=== PATIENT | male | born 1960 | race Caucasian/White ===

== ENCOUNTER → 2024-01-12 | Outpatient (CLI) | payer MEDICARE, MEDICAID, SELFPAY ==
[2024-01-12 19:49] LABS: Amphetamine Urine VISTA NEGATIVE (<1000 ng/mL); Barbiturate Urine VISTA NEGATIVE (< 200 ng/mL); Benzodiazepine Urine VISTA NEGATIVE (< 200 ng/mL); Cocaine Urine VISTA NEGATIVE (< 300 ng/mL); Ecstacy Urine VISTA NEGATIVE (< 500 ng/mL); Methadone Urine VISTA NEGATIVE (< 300 ng/mL); PCP Urine VISTA NEGATIVE (< 25 ng/mL); THC Urine VISTA POSITIVE (< 50 ng/mL); Vista UDS pH Range 4
--- OUTSIDE RECORDS SUMMARY | 2024-01-13 03:34 | XMS RPT_ITS | CCD ---
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 [id number] 2.16.840.1.938365.3.579.2. 356 1958 Unknown [id number] 2.16.840.1.184913.3.579.2. 356 1958 Unknown [id number] 2.16.840.1.686350.3.579.2. 356 1958 Unknown [id number] 2.16.840.1.206354.3.579.2. 356 1958 Unknown [id number] 2.16.840.1.487518.3.579.2. 1243 1958 Unknown [id number] 2.16.840.1.809974.3.579.2. 1243 1958 Unknown [id number] 2.16.840.1.061939.3.579.2. 1243 1958 Unknown [id number] 2.16.840.1.624425.3.579.2. 1245 1958 Unknown [id number] 2.16.840.1.991750.3.579.2. 1244 1958 Unknown [id number] 2.16.840.1.696171.3.579.2. 1244 1958 Unknown [id number] 2.16.840.1.594464.3.579.2. 1244 1958 Unknown [id number] 2.16.840.1.121829.3.579.2. 1244 1958 Unknown [id number] 2.16.840.1.489349.3.579.2. 1244 Social History Date Type Detail Facility Start: 11-05-2018 End: 01-07-2024 Tobacco smoking status NDIS Current every day smoker [facility] History of tobacco use Cigarette Smoker [facility] Work Phone: Start: 11-05-2018 End: 12-03-2023 Cigarettes smoked current (pack per day) - Reported [facility] Work Phone: Start: 1960 Sex Assigned At Not on file [facility] Work Phone: Start: 12-06-2019 End: 08-29-2022 Alcohol intake Current non-drinker of alcohol (finding) [facility] Start: 12-13-2019 End: 01-19-2022 Alcohol intake Current drinker of alcohol (finding) [facility] Start: 01-28-2020 Tobacco Comment 3-4 cigarettes [facility] Start: 08-26-2022 End: 09-05-2022 Exposure to SARS-CoV-2 (event) Unable to assess [facility] Start: 02-10-2020 End: 01-07-2024 Tobacco use and exposure Never used [facility] Start: 01-09-2022 End: 01-07-2024 Exposure to SARS-CoV-2 (event) Not sure [facility] Start: 06-11-2022 Tobacco Comment 3-4 cigarettes [facility] Start: 08-28-2022 History SDOH Financial 3 [facility] Start: 08-28-2022 History SDOH Food Worry 1 [facility] Start: 08-28-2022 History SDOH Transpo rt Med 2 [facility] Tobacco smoking consumption unknown [facility] Start: 02-02-2023 End: 12-03-2023 Tobacco use panel [facility] Work Phone: Start: 08-20-2023 End: 01-07-2024 Alcohol intake Ex-drinker (finding) [facility] Work Phone: History of tobacco use Passive smoker [facility] Work Phone: Clinical Notes 01-19-2022 to 01-07-2024 Assessment & Plan Note - Kyle Emery MD - 01/07/2024 12:57 PM ESTAssessment & Plan Note - Kyle Emery MD - 01/07/2024 12:57 PM ESTPatient InstructionsPatient Instructions Note Date & Type Note Facility 01-07-2024 Evaluation + Plan note Associated Problem(s): Chronic right-sided low back pain with right-sided sciatica Patient has been there for several months, x-ray in August showed degenerative changes, patient is complaining about pain especially into his right leg, refer to pain management for possible injections, may also want to consider physical therapy. [facility] Work Phone: 01-07-2024 Miscellaneous Notes Associated Problem(s): Chronic right-sided low back pain with right-sided sciatica Patient has been there for several months, x-ray in August showed degenerative changes, patient is complaining about pain especially into his right leg, refer to pain management for possible injections, may also want to consider physical therapy. Associated Problem(s): Current mild episode of major depressive disorder without prior episode (CMS/HCC) Currently on medication, emotionally seems to be stable. Associated Problem(s): Prediabetes A1c testing below 6, advised about diet no change. Associated Problem(s): Thrombocytopenia (CMS/HCC) Platelet count is elevated, advised about nicotine use. Recheck at follow-up. Associated Problem(s): Dyslipidemia Tolerating atorvastatin labs reviewed. Associated Problem(s): Palpitations EKG in the office is normal, recent thyroid testing in the past 6 months was also normal, recent blood testing was reviewed and stable. Check 7-day Holter monitor along with a echocardiogram and follow-up after testing. Associated Problem(s): Primary hypertension Blood pressure is elevated, add diltiazem 240 mg once a day given history of palpitations, continue with current dosing of lisinopril, electrolyte and renal functions are stable had trouble tolerating beta-blockers in the past. documented in this encounter [facility] Work Phone: 01-07-2024 Evaluation + Plan note Associated Problem(s): Current mild episode of major depressive disorder without prior episode (CMS/HCC) Currently on medication, emotionally seems to be stable. [employer] [facility] Work Phone: 01-07-2024 Evaluation + Plan note Associated Problem(s): Prediabetes A1c testing below 6, advised about diet no change. [employer] [facility] Work Phone: 01-07-2024 Evaluation + Plan note Associated Problem(s): Thrombocytopenia (CMS/HCC) Platelet count is elevated, advised about nicotine use. Recheck at follow-up. [employer] [facility] Work Phone: 01-07-2024 Evaluation + Plan note Associated Problem(s): Dyslipidemia Tolerating atorvastatin labs reviewed. [employer] [facility] Work Phone: 01-07-2024 Evaluation + Plan note Associated Problem(s): Palpitations EKG in the office is normal, recent thyroid testing in the past 6 months was also normal, recent blood testing was reviewed and stable. Check 7-day Holter monitor along with a echocardiogram and follow-up after testing. [facility] Work Phone: 01-07-2024 Evaluation + Plan note Associated Problem(s): Primary hypertension Blood pressure is elevated, add diltiazem 240 mg once a day given history of palpitations, continue with current dosing of lisinopril, electrolyte and renal functions are stable had trouble tolerating beta-blockers in the past. [facility] Work Phone: 01-07-2024 History of Presen t illness Narrative Subjective Reason for Visit: Bg Arreola is an 63 y.o. male here for a Medicare Wellness visit. Past Medical, Surgical, and Family History reviewed and updated in chart. Reviewed all medications by prescribing practitioner or clinical pharmacist (such as prescriptions, OTCs, herbal therapies and supplements) and documented in the medical record. HPI No headache, chest pain, shortness of breath, dizziness, lightheadedness, or edema HBP over 140/90 LBP chronic pain since August, feels like pain getting worse, radiates to right leg to mid calf, some weakness at times Tobacco 3-4 cigarettes a day Seen Opthomology, diagnosed with vitreous detachment Had an episode of palpitations yesterday, valsalva helped, no near syncope, lasted minutes Patient Care Team: Kyle Emery MD as PCP - General (Family Medicine) Ja Borges DO as PCP - [facility] Medicaid PCP Review of Systems Constitutional: Negative for activity change, appetite change, fatigue and unexpected weight change. HENT: Negative for ear pain, nosebleeds, rhinorrhea, sneezing and trouble swallowing. Respiratory: Negative for cough, shortness of breath and wheezing. Cardiovascular: Positive for palpitations. Negative for chest pain and leg swelling. Gastrointestinal: Negative for abdominal distention, abdominal pain, constipation, diarrhea, nausea and vomiting. Genitourinary: Negative for difficulty urinating. Musculoskeletal: Positive for back pain. Negative for arthralgias. Skin: Negative for rash. Neurological: Negative for dizziness, light-headedness, numbness and headaches. Hematological: Negative for adenopathy. Psychiatric/Behavioral: Negative for behavioral problems, dysphoric mood and sleep disturbance. The patient is not nervous/anxious. All other systems reviewed and are negative. Objective Vitals: BP (!) 160/100 Pulse 83 SpO2 97% Physical Exam Vitals and nursing note reviewed. Constitutional: General: He is not in acute distress. Appearance: Normal appearance. He is not toxic-appearing. HENT: Head: Normocephalic and atraumatic. Right Ear: Tympanic membrane, ear canal and external ear normal. Left Ear: Tympanic membrane, ear canal and external ear normal. Nose: Nose normal. Mouth/Throat: Mouth: Mucous membranes are moist. Pharynx: Oropharynx is clear. Eyes: Extraocular Movements: Extraocular movements intact. Conjunctiva/sclera: Conjunctivae normal. Pupils: Pupils are equal, round, and reactive to light. Cardiovascular: Rate and Rhythm: Normal rate and regular rhythm. Pulses: Normal pulses. Heart sounds: Normal heart sounds. Comments: EKG in the office reveals a normal sinus rhythm without any ST-T wave changes or any arrhythmias. Pulmonary: Effort: Pulmonary effort is normal. Breath sounds: Normal breath sounds. Abdominal: General: Abdomen is flat. Bowel sounds are normal. Palpations: Abdomen is soft. Musculoskeletal: Cervical back: Normal range of motion and neck supple. Comments: Some pain along the lower back at the area of the waist level of L4-S1, negative straight leg raise normal lower extremity strength and reflexes. Normal distal sensation. Skin: General: Skin is warm and dry. Capillary Refill: Capillary refill takes less than 2 seconds. Neurological: General: No focal deficit present. Mental Status: He is alert and oriented to person, place, and time. Mental status is at baseline. Psychiatric: Mood and Affect: Mood normal. Behavior: Behavior normal. Assessment/Plan Problem List Items Addressed This Visit Primary hypertension Current Assessment & Plan Blood pressure is elevated, add diltiazem 240 mg once a day given history of palpitations, continue with current dosing of lisinopril, electrolyte and renal functions are stable had trouble tolerating beta-blockers in the past. Relevant Medications dilTIAZem CD (Cardizem CD) 240 mg 24 hr capsule Other Relevant Orders Follow Up In Primary Care - Established Transthoracic Echo Complete Palpitations Current Assessment & Plan EKG in the office is normal, recent thyroid testing in the past 6 months was also normal, recent blood testing was reviewed and stable. Check 7-day Holter monitor along with a echocardiogram and follow-up after testing. Relevant Orders Follow Up In Primary Care - Established Holter Or Event Psych Nurse ECG 12 Lead (Completed) Transthoracic Echo Complete Dyslipidemia Current Assessment & Plan Tolerating atorvastatin labs reviewed. Relevant Orders Follow Up In Primary Care - Established Anxiety Relevant Orders Follow Up In Primary Care - Established Current mild episode of major depressive disorder without prior episode ([facility]) Current Assessment & Plan Currently on medication, emotionally seems to be stable. Relevant Orders Follow Up In Primary Care - Established Prediabetes Overview HbA1c: 5.8% (12/2022) Current Assessment & Plan A1c testing below 6, advised about diet no change. Relevant Orders Follow Up In Primary Care - Established Thrombocytopenia ([facility]) Current Assessment & Plan Platelet count is elevated, advised about nicotine use. Recheck at follow-up. Relevant Orders Follow Up In Primary Care - Established Chronic right-sided low back pain with right-sided sciatica Current Assessment & Plan Patient has been there for several months, x-ray in August showed degenerative changes, patient is complaining about pain especially into his right leg, refer to pain management for possible injections, may also want to consider physical therapy. Relevant Orders Follow Up In Primary Care - Established Referral to Pain Medicine Other Visit Diagnoses Routine general medical examination at health care facility - Primary Patient refused pneumonia vaccination despite crisis counselor. Relevant Orders Follow Up In Primary Care - Established Screening for prostate cancer Check PSA first. Relevant Orders Follow Up In Primary Care - Established Encounter for screening for malignant neoplasm of colon Will send Cologuard. Relevant Orders Follow Up In Primary Care - Established Vision changes Acute vision changes over the past 2 weeks, refer to ophthalmology Relevant Orders Follow Up In Primary Care - Established documented in this encounter [facility] Work Phone: 01-07-2024 Instructions Kyle Emery MD - 01/07/2024 8:40 AM EST Start diltiazem once a day and get heart testing done documented in this encounter [facility] Work Phone: 12-03-2023 Evaluation + Plan note Associated Problem(s): Chronic right-sided low back pain with right-sided sciatica Using meloxicam, would defer pain medication due to THC use, trial prednisone taper over the next 10 days. [facility] Work Phone: 12-03-2023 Evaluation + Plan note Associated Problem(s): Current mild episode of major depressive disorder without prior episode (CMS/HCC) Seems to be stable uses cannabis on a regular basis. [facility] Work Phone: 12-03-2023 Evaluation + Plan note Associated Problem(s): Anxiety Not currently on medication, uses cannabis recreationally that seems to help control moods. [facility] Work Phone: 12-03-2023 Miscellaneous Notes Associated Problem(s): Chronic right-sided low back pain with right-sided sciatica Using meloxicam, would defer pain medication due to THC use, trial prednisone taper over the next 10 days. Associated Problem(s): Current mild episode of major depressive disorder without prior episode (CMS/HCC) Seems to be stable uses cannabis on a regular basis. Associated Problem(s): Anxiety Not currently on medication, uses cannabis recreationally that seems to help control moods. Associated Problem(s): Prediabetes Check A1c advised about diet. Associated Problem(s): Thrombocytopenia (CMS/HCC) Check CBC advised about tobacco use. Associated Problem(s): Dyslipidemia Tolerating atorvastatin, check blood testing. Associated Problem(s): Palpitations Holter monitor in the past demonstrated nonsignificant number of PVCs and PACs. Had trouble tolerating beta-blockers in the past, no change. Associated Problem(s): Primary hypertension Blood pressure elevated today, tolerating lisinopril, advised to try to get some home blood pressure readings before next office visit, check blood testing. documented in this encounter [facility] Work Phone: 12-03-2023 Evaluation + Plan note Associated Problem(s): Prediabetes Check A1c advised about diet. [facility] Work Phone: 12-03-2023 Evaluation + Plan note Associated Problem(s): Thrombocytopenia (CMS/HCC) Check CBC advised about tobacco use. [facility] Work Phone: 12-03-2023 Evaluation + Plan note Associated Problem(s): Dyslipidemia Tolerating atorvastatin, check blood testing. [facility] Work Phone: 12-03-2023 Evaluation + Plan note Associated Problem(s): Palpitations Holter monitor in the past demonstrated nonsignificant number of PVCs and PACs. Had trouble tolerating beta-blockers in the past, no change. [facility] Work Phone: 12-03-2023 Evaluation + Plan note Associated Problem(s): Primary hypertension Blood pressure elevated today, tolerating lisinopril, advised to try to get some home blood pressure readings before next office visit, check blood testing. [facility] Work Phone: 12-03-2023 History of Presen t illness Narrative Subjective Patient ID: Bg Arreola is a 63 y.o. male who presents for [employer],Estab Care. HPI No headache, chest pain, shortness of breath, dizziness, lightheadedness (at times), or edema Taking and tolerating statin Twisted back in the past week, was in ER in October, radiates to right leg, some weakness in right leg, Prednisone helped in the past Has some palpitations at times, had Holter in the next year Some urine issues in AM, no nocturia, Saw [place] helps Some visual changes in the past 2 weeks No Fhx of colon cancer or blood in stool No HBP, + tobacco use, has used Chantix in the past (had nightmares), 3-4 cigarettes a day, trying to quit Uses THC daily (helps sleep and moods) Defers pneumovax Review of Systems Constitutional: Negative for activity change, appetite change, fatigue and unexpected weight change. HENT: Negative for ear pain, nosebleeds, rhinorrhea, sneezing and trouble swallowing. Eyes: Positive for visual disturbance. Respiratory: Negative for cough, shortness of breath and wheezing. Cardiovascular: Negative for chest pain, palpitations and leg swelling. Gastrointestinal: Negative for abdominal distention, abdominal pain, constipation, diarrhea, nausea and vomiting. Genitourinary: Negative for difficulty urinating. Musculoskeletal: Positive for back pain. Negative for arthralgias and gait problem. Skin: Negative for rash. Neurological: Negative for dizziness, light-headedness, numbness and headaches. Hematological: Negative for adenopathy. Psychiatric/Behavioral: Negative for behavioral problems, decreased concentration, dysphoric mood, hallucinations and sleep disturbance. The patient is not nervous/anxious. All other systems reviewed and are negative. Objective BP (!) 140/100 Pulse 90 Ht 1.753 m (5' 9 ) Wt 95.9 kg (211 lb 8 oz) SpO2 95% BMI 31.23 kg/m Physical Exam Vitals and nursing note reviewed. Constitutional: General: He is not in acute distress. Appearance: Normal appearance. He is not toxic-appearing. HENT: Head: Normocephalic and atraumatic. Right Ear: Tympanic membrane, ear canal and external ear normal. Left Ear: Tympanic membrane, ear canal and external ear normal. Nose: Nose normal. Mouth/Throat: Mouth: Mucous membranes are moist. Pharynx: Oropharynx is clear. Eyes: Extraocular Movements: Extraocular movements intact. Conjunctiva/sclera: Conjunctivae normal. Pupils: Pupils are equal, round, and reactive to light. Cardiovascular: Rate and Rhythm: Normal rate and regular rhythm. Pulses: Normal pulses. Heart sounds: Normal heart sounds. Pulmonary: Effort: Pulmonary effort is normal. Breath sounds: Normal breath sounds. Abdominal: General: Abdomen is flat. Bowel sounds are normal. Palpations: Abdomen is soft. Musculoskeletal: Cervical back: Normal range of motion and neck supple. Comments: Some pain right SI area, negative straight leg raise bilaterally, normal strength, reflexes and distal pulses. Skin: General: Skin is warm and dry. Capillary Refill: Capillary refill takes less than 2 seconds. Neurological: General: No focal deficit present. Mental Status: He is alert and oriented to person, place, and time. Mental status is at baseline. Psychiatric: Mood and Affect: Mood normal. Behavior: Behavior normal. Assessment/Plan Problem List Items Addressed This Visit ICD-10-CM Primary hypertension - Primary I10 Blood pressure elevated today, tolerating lisinopril, advised to try to get some home blood pressure readings before next office visit, check blood testing. Relevant Orders Follow Up In Primary Care - Established Comprehensive Metabolic Panel Palpitations R00.2 Holter monitor in the past demonstrated nonsignificant number of PVCs and PACs. Had trouble tolerating beta-blockers in the past, no change. Dyslipidemia E78.5 Tolerating atorvastatin, check blood testing. Relevant Orders Follow Up In Primary Care - Established Comprehensive Metabolic Panel Lipid Panel Anxiety F41.9 Not currently on medication, uses cannabis recreationally that seems to help control moods. Relevant Orders Follow Up In Primary Care - Established Current mild episode of major depressive disorder without prior episode ([facility]) F32.0 Seems to be stable uses cannabis on a regular basis. Relevant Orders Follow Up In Primary Care - Established Prediabetes R73.03 Check A1c advised about diet. Relevant Orders Follow Up In Primary Care - Established Comprehensive Metabolic Panel Hemoglobin A1C (Completed) Thrombocytopenia (CMS/HCC) D69.6 Check CBC advised about tobacco use. Relevant Orders Follow Up In Primary Care - Established CBC and Auto Differential Chronic right-sided low back pain with right-sided sciatica M54.41, G89.29 Using meloxicam, would defer pain medication due to THC use, trial prednisone taper over the next 10 days. Relevant Medications predniSONE (Deltasone) 10 mg tablet Other Relevant Orders Follow Up In Primary Care - Established Other Visit Diagnoses Codes Screening for prostate cancer Z12.5 Check PSA first. Relevant Orders Follow Up In Primary Care - Established Prostate Specific Antigen, Screen (Completed) Encounter for screening for malignant neoplasm of colon Z12.11 Will send Cologuard. Relevant Orders Follow Up In Primary Care - Established Cologuard colon cancer screening Vision changes H53.9 Acute vision changes over the past 2 weeks, refer to ophthalmology Relevant Orders Follow Up In Primary Care - Established Referral to Ophthalmology documented in this encounter [facility] Work Phone: 12-03-2023 Instructions Kyle Emery MD - 12/03/2023 9:20 AM EST Try to get some blood pressures at home, goal to be loess than 140/90 documented in this encounter [facility] Work Phone: 10-16-2023 Emergency department Note Patient is a 63-year-old male chief complaint of green diarrhea. States he has had some diarrhea for months now. About 3 days ago he ate some ham that had been out all night. Initially his diarrhea turned bloody and now it is green. He has no dizziness or lightheadedness. No nausea or vomiting. Review of Systems Physical Exam Vitals and nursing note reviewed. Constitutional: General: He is not in acute distress. Appearance: He is well-developed. HENT: Head: Normocephalic and atraumatic. Eyes: Conjunctiva/sclera: Conjunctivae normal. Cardiovascular: Rate and Rhythm: Normal rate and regular rhythm. Heart sounds: No murmur heard. Pulmonary: Effort: Pulmonary effort is normal. No respiratory distress. Breath sounds: Normal breath sounds. Abdominal: Palpations: Abdomen is soft. Tenderness: There is no abdominal tenderness. Musculoskeletal: General: No swelling. Cervical back: Neck supple. Skin: General: Skin is warm and dry. Capillary Refill: Capillary refill takes less than 2 seconds. Neurological: Mental Status: He is alert. Psychiatric: Mood and Affect: Mood normal. Labs Reviewed - No data to display No orders to display Procedures Medical Decision Making Patient presents with a change in his diarrhea after eating what he describes as some spoiled ham. He has mild abdominal discomfort and some greenish diarrhea. Will give him an initial dose of Cipro and a prescription for 3 more days. Diagnoses as of 10/16/23628 Diarrhea of presumed infectious origin Farzana Cornell MD 10/16/23628 documented in this encounter [facility] Work Phone: 10-16-2023 Physician Emergency department Note Patient is a 63-year-old male chief complaint of green diarrhea. States he has had some diarrhea for months now. About 3 days ago he ate some ham that had been out all night. Initially his diarrhea turned bloody and now it is green. He has no dizziness or lightheadedness. No nausea or vomiting. Review of Systems Physical Exam Vitals and nursing note reviewed. Constitutional: General: He is not in acute distress. Appearance: He is well-developed. HENT: Head: Normocephalic and atraumatic. Eyes: Conjunctiva/sclera: Conjunctivae normal. Cardiovascular: Rate and Rhythm: Normal rate and regular rhythm. Heart sounds: No murmur heard. Pulmonary: Effort: Pulmonary effort is normal. No respiratory distress. Breath sounds: Normal breath sounds. Abdominal: Palpations: Abdomen is soft. Tenderness: There is no abdominal tenderness. Musculoskeletal: General: No swelling. Cervical back: Neck supple. Skin: General: Skin is warm and dry. Capillary Refill: Capillary refill takes less than 2 seconds. Neurological: Mental Status: He is alert. Psychiatric: Mood and Affect: Mood normal. Labs Reviewed - No data to display No orders to display Procedures Medical Decision Making Patient presents with a change in his diarrhea after eating what he describes as some spoiled ham. He has mild abdominal discomfort and some greenish diarrhea. Will give him an initial dose of Cipro and a prescription for 3 more days. Diagnoses as of 10/16/23628 Diarrhea of presumed infectious origin Farzana Cornell MD 10/16/23628 [facility] Work Phone: 10-10-2023 Evaluation + Plan note Associated Problem(s): Chronic right-sided low back pain with right-sided sciatica ED saad reviewed - picked up Flexeril, prednisone, [place] from pharmacy that he has not yet started. Medication dosing and side effects reviewed. Agree with pain management establishment - will facilitate referral. He prefers [facility]. Return precautions reviewed. [facility] Work Phone: 10-10-2023 Miscellaneous Notes Associated Problem(s): Chronic right-sided low back pain with right-sided sciatica ED eval reviewed - picked up Flexeril, prednisone, [place] from pharmacy that he has not yet started. Medication dosing and side effects reviewed. Agree with pain management establishment - will facilitate referral. He prefers [facility]. Return precautions reviewed. documented in this encounter [facility] Work Phone: 10-08-2023 History of Presen t illness Narrative Subjective Patient ID: Bg Arreola is a 63 y.o. male who presents for ER follow up for back pain HPI Back pain - struggles with chronic back pain that has been worsening over the past few weeks, pain localized to low back and intermittently radiates down posterior RLE to the foot, denies numbness, tingling, LE weakness, saddle anesthesia, urinary retention, bowel/bladder incontinence, was evaluated in [facility] ED this morning, tx with IM toradol and steroid and has not had any improvement in symptoms yet, was provided with rx for prednisone, [place], Flexeril, picked up from pharmacy but has not yet started them, he is interested in establishing with pain management Review of Systems Constitutional: Negative for chills and fever. Respiratory: Negative for cough and shortness of breath. Cardiovascular: Negative for chest pain and palpitations. Musculoskeletal: Positive for back pain. All other systems reviewed and are negative. Objective BP 118/76 Pulse 92 Ht 1.829 m (6') Wt 92.4 kg (203 lb 9.6 oz) BMI 27.61 kg/m Physical Exam Constitutional: Appearance: Normal appearance. HENT: Head: Normocephalic and atraumatic. Cardiovascular: Rate and Rhythm: Normal rate. Pulmonary: Effort: Pulmonary effort is normal. No respiratory distress. Neurological: Mental Status: He is alert. Psychiatric: Mood and Affect: Mood normal. Behavior: Behavior normal. Assessment/Plan Problem List Items Addressed This Visit ICD-10-CM Chronic right-sided low back pain with right-sided sciatica - Primary M54.41, G89.29 ED eval reviewed - picked up Flexeril, prednisone, [place] from pharmacy that he has not yet started. Medication dosing and side effects reviewed. Agree with pain management establishment - will facilitate referral. He prefers [facility]. Return precautions reviewed. Relevant Orders Referral to Pain Medicine Follow Up In Primary Care - Medicare Annual I dont do pain medicine documented in this encounter [facility] Work Phone: 04-02-2023 Evaluation + Plan note Associated Problem(s): Right hip pain Chronic. Reviewed tx options. Will trial NSAID and prn at bedtime muscle relaxer. Medication dosing and side effects reviewed. [facility] Work Phone: 04-02-2023 Miscellaneous Notes Associated Problem(s): Right hip pain Chronic. Reviewed tx options. Will trial NSAID and prn at bedtime muscle relaxer. Medication dosing and side effects reviewed. Associated Problem(s): Thrombocytopenia (CMS/HCC) Will repeat cbc and follow up with results. Associated Problem(s): Nocturia Urology eval. Associated Problem(s): Urinary hesitancy 1yr of hesitancy, urgency, nocturia. Will obtain PSA and will proceed with urology eval. Associated Problem(s): Primary hypertension BP at goal. Continue lisinopril at current dose. Associated Problem(s): Dyslipidemia Continue statin. documented in this encounter [facility] Work Phone: 04-02-2023 Evaluation + Plan note Associated Problem(s): Thrombocytopenia (CMS/HCC) Will repeat cbc and follow up with results. [facility] Work Phone: 04-02-2023 Evaluation + Plan note Associated Problem(s): Nocturia Urology eval. [facility] Work Phone: 04-02-2023 Evaluation + Plan note Associated Problem(s): Urinary hesitancy 1yr of hesitancy, urgency, nocturia. Will obtain PSA and will proceed with urology eval. [facility] Work Phone: 04-02-2023 Evaluation + Plan note Associated Problem(s): Primary hypertension BP at goal. Continue lisinopril at current dose. [facility] Work Phone: 04-02-2023 Evaluation + Plan note Associated Problem(s): Dyslipidemia Continue statin. [facility] Work Phone: 03-31-2023 History of Presen t illness Narrative Subjective Patient ID: Bg Arreola is a 62 y.o. male who presents for check up. HPI Regarding HTN, doing well with lisinopril. Denies adverse effects and overall feeling well. Denies CP, SOB, BANERJEE, LH, abd pain, n/v/d. Regarding palpitations, Holter reviewed and unrevealing. Patient states that symptoms have largely resolved. Regarding HLD, doing well with Lipitor. Denies adverse effects. Regarding urination, states that he has had difficulty starting stream in the mornings for the past 1yr. States has to sit and wait a while and then has to return to the bathroom a few more times before feeling empty. Also notes nocturia, up to 4x per night. Occasionally has sudden urge to urination. Denies pain or burning. Does admit to drinking at least 3 cans of Pepsi per day. PSA was 08/2022. Regarding hip pain, states that he has struggled with bilateral R>L hip pain since he was injured a few times in high school playing sports. Manages at this time with otc analgesics which sometimes help. Pain seems to be random but worse with flexion at the hip. Pain is starting to interfere with sleep. Review of Systems Constitutional: Negative for chills and fever. Respiratory: Negative for cough and shortness of breath. Cardiovascular: Negative for chest pain and palpitations. Genitourinary: Positive for difficulty urinating and urgency. Musculoskeletal: Positive for arthralgias (hip pain). All other systems reviewed and are negative. Objective BP 118/66 Pulse 88 Ht 1.829 m (6') Wt 94.3 kg (208 lb) BMI 28.21 kg/m Physical Exam Constitutional: Appearance: Normal appearance. HENT: Head: Normocephalic and atraumatic. Cardiovascular: Rate and Rhythm: Normal rate. Pulmonary: Effort: Pulmonary effort is normal. No respiratory distress. Neurological: Mental Status: He is alert. Psychiatric: Mood and Affect: Mood normal. Behavior: Behavior normal. Assessment/Plan Problem List Items Addressed This Visit Urinary hesitancy - Primary 1yr of hesitancy, urgency, nocturia. Will obtain PSA and will proceed with urology eval. Relevant Orders Referral to Urology Follow Up In Primary Care Thrombocytopenia (CMS/HCC) Will repeat cbc and follow up with results. Relevant Orders CBC and Auto Differential Follow Up In Primary Care Right hip pain Chronic. Reviewed tx options. Will trial NSAID and prn at bedtime muscle relaxer. Medication dosing and side effects reviewed. Relevant Medications meloxicam (Mobic) 7.5 mg tablet cyclobenzaprine (Flexeril) 5 mg tablet Other Relevant Orders Follow Up In Primary Care Primary hypertension BP at goal. Continue lisinopril at current dose. Relevant Orders CBC and Auto Differential Comprehensive Metabolic Panel Follow Up In Primary Care Nocturia Urology eval. Relevant Orders Referral to Urology Follow Up In Primary Care Dyslipidemia Continue statin. Relevant Orders Lipid Panel Follow Up In Primary Care Other Visit Diagnoses Prostate cancer screening Relevant Orders Prostate Specific Antigen Follow Up In Primary Care Follow up in 3mo for recheck, sooner if needed. documented in this encounter [facility] Work Phone: 02-08-2023 Evaluation + Plan note Associated Problem(s): Prediabetes Reviewed lifestyle modifications. Will continue to monitor. [facility] Work Phone: 02-08-2023 Miscellaneous Notes Associated Problem(s): Prediabetes Reviewed lifestyle modifications. Will continue to monitor. Associated Problem(s): Cigarette nicotine dependence without complication Pt ready to quit. Reviewed options. He is interested in Chantix as he did well with this in the past. Medication dosing and side effects reviewed. Associated Problem(s): Palpitations Largely unchanged compared to last eval. Will proceed with Holter and fu with results. Follow up in 2wks for recheck, sooner if needed. Return precautions reviewed. Associated Problem(s): Seasonal allergies Well-controlled with Flonase. Will provide refill. Associated Problem(s): Primary hypertension Improved since he restarted leftover lisinopril 20mg that he had at home. Will provide refill. Medication dosing and side effects reviewed. Recent metabolic panel reviewed. Associated Problem(s): Dyslipidemia Reviewed statin recommendation. Pt is agreeable. Will trial Lipitor. Medication dosing and side effects reviewed. documented in this encounter [facility] Work Phone: 02-08-2023 Evaluation + Plan note Associated Problem(s): Cigarette nicotine dependence without complication Pt ready to quit. Reviewed options. He is interested in Chantix as he did well with this in the past. Medication dosing and side effects reviewed. [facility] Work Phone: 02-08-2023 Evaluation + Plan note Associated Problem(s): Palpitations Largely unchanged compared to last eval. Will proceed with Holter and fu with results. Follow up in 2wks for recheck, sooner if needed. Return precautions reviewed. [facility] Work Phone: 02-08-2023 Evaluation + Plan note Associated Problem(s): Seasonal allergies Well-controlled with Flonase. Will provide refill. [facility] Work Phone: 02-08-2023 Evaluation + Plan note Associated Problem(s): Primary hypertension Improved since he restarted leftover lisinopril 20mg that he had at home. Will provide refill. Medication dosing and side effects reviewed. Recent metabolic panel reviewed. [facility] Work Phone: 02-08-2023 Evaluation + Plan note Associated Problem(s): Dyslipidemia Reviewed statin recommendation. Pt is agreeable. Will trial Lipitor. Medication dosing and side effects reviewed. [facility] Work Phone: 02-02-2023 History of Presen t illness Narrative Follow up to urgent care. Having papitations and high blood pressure. Has taken Lisinopril the last 4 days. Subjective Patient ID: Bg Arreola is a 62 y.o. male who presents for Follow-up and Hypertension. HPI Regarding palpitations, went to Urgent Care 01/29/2023 for eval and was told that BP was elevated. Was also having some SOB with palpitations. Labs were done during visit - significant for mild leukopenia and thrombocytopenia and HbA1c 5.8%. Otherwise unrevealing. States that he had leftover lisinopril at home and has been taking for the past 5 days. Did have 1 episode of random brief sharp CP since his eval, but overall feeling improved. Having palpitations at least daily. Regarding seasonal allergies, states that Flonase seems to help. Regarding insomnia, states that trazodone didn't help. Continues to struggle with falling and staying asleep. Review of Systems Constitutional: Negative for chills and fever. Respiratory: Negative for cough and shortness of breath. Cardiovascular: Positive for palpitations. Negative for chest pain. All other systems reviewed and are negative. Objective BP 138/76 Pulse 104 Ht 1.854 m (6' 1 ) Wt 91.9 kg (202 lb 9.6 oz) BMI 26.73 kg/m Physical Exam Constitutional: Appearance: Normal appearance. HENT: Head: Normocephalic and atraumatic. Eyes: General: No scleral icterus. Conjunctiva/sclera: Conjunctivae normal. Cardiovascular: Rate and Rhythm: Normal rate and regular rhythm. Heart sounds: No murmur heard. Pulmonary: Effort: Pulmonary effort is normal. No respiratory distress. Breath sounds: Normal breath sounds. Musculoskeletal: General: No swelling. Normal range of motion. Cervical back: Normal range of motion and neck supple. Skin: General: Skin is warm and dry. Findings: No rash. Neurological: General: No focal deficit present. Mental Status: He is alert. Psychiatric: Mood and Affect: Mood normal. Behavior: Behavior normal. Assessment/Plan Problem List Items Addressed This Visit Cigarette nicotine dependence without complication Pt ready to quit. Reviewed options. He is interested in Chantix as he did well with this in the past. Medication dosing and side effects reviewed. Relevant Medications varenicline (Chantix Starting Month Box) 0.5 mg (11)- 1 mg (42) tablet Dyslipidemia Reviewed statin recommendation. Pt is agreeable. Will trial Lipitor. Medication dosing and side effects reviewed. Relevant Medications atorvastatin (Lipitor) 10 mg tablet Palpitations Largely unchanged compared to last eval. Will proceed with Holter and fu with results. Follow up in 2wks for recheck, sooner if needed. Return precautions reviewed. Relevant Orders Holter or Event Psych Nurse Prediabetes Reviewed lifestyle modifications. Will continue to monitor. Primary hypertension - Primary Improved since he restarted leftover lisinopril 20mg that he had at home. Will provide refill. Medication dosing and side effects reviewed. Recent metabolic panel reviewed. Relevant Medications lisinopril 20 mg tablet Seasonal allergies Well-controlled with Flonase. Will provide refill. Relevant Medications fluticasone (Flonase) 50 mcg/actuation nasal spray documented in this encounter [facility] Work Phone: 09-24-2022 History of Presen t illness Narrative Patient is a 62-year-old very pleasant gentleman who presents to the office today to Establish with Urinary Hesitancy. He states that his symptom started several months ago. LUTs are chronic and mild. Some frequency and urgency...Some hesitancy... Denies dysuria and hematuria.. Nocturia x1..No Bone Pain...No Recent Weight Gain or Loss...No Fm Hx of Prostate CA... No recent PSA...Caffeine does worsen LUTs.. No medications for LUTs..ED is Chronic, no meds for this. No Hx of Kidney Stones. No Hx of UTI's. The patient states that he is currently on antihypertensive medications and is concerned with blood pressure elevations if he will be started on tamsulosin. [id number] Work Phone: 08-28-2022 Evaluation + Plan note Associated Problem(s): Hypertension No meds for blood pressure Write down readings [facility] 08-28-2022 Miscellaneous Notes Associated Problem(s): Hypertension No meds for blood pressure Write down readings Associated Problem(s): Anxiety Start taking lexapro to help with anxiety Anxiety Anxiety is a normal reaction to stress. Difficult situations can cause you to have symptoms such as sweaty palms and a nervous feeling. In an anxiety disorder, the symptoms are far more severe. Constant worry, muscle tension, trouble sleeping, nausea and diarrhea, and other symptoms can make normal daily activities difficult or impossible. These symptoms may occur for no reason, and they can affect your work, school, or social life. Medicines, counseling, and self-care can all help. Tips to help with anxiety Exercise Everyone knows that exercising helps you attain and maintain good physical health, but did you know that a consistent exercise routine can also help with anxiety1? In particular, aerobic exercise (e.g., running, swimming, walking2) can decrease both state (i.e., how you feel now) and trait (i.e., how you feel on a regular basis) anxiety3. Evidence suggests that developing a consistent routine where one exercises for 20 min or more per session provides the strongest benefits for anxiety. In fact, when used in such a way, exercise has been found to be so effective at helping with anxiety that some have suggested that it could serve as a clinical intervention and may even help prevent the development of anxiety disorders4. Thus, including a steady exercise routine as a part of your self-care can help to manage your anxiety over a long period of time. Before starting an exercise routine, consult with a medical professional to ensure that you are healthy enough for exercise and that you choose the exercise type that best fits your lifestyle. Limiting Caffeine Intake As an avid coffee drinker, I get quite defensive when anyone suggests I reduce my caffeine intake. However, as an individual with an anxiety disorder, I do need to keep an eye on how much of the drug I consume. Caffeine increases autonomic nervous system activation associated with wakefulness as well as iftna-ky-ptiebf reufrzvza16. In other words, caffeine makes you more ready to act - something quite beneficial early on a Thursday morning. However, adding caffeine to an anxiety disorder can produce bad results. Evidence suggests that caffeine can increase anxiety on its [id number], and anxious individuals seem particularly vulnerable to this [id number]. Consequently, if you experience elevated anxiety on a regular basis, then you want to monitor and/or reduce your caffeine intake. I am not advocating completely abstaining from caffeine (I certainly don't), but good self-care for anxiety includes making sure that you don't overdo it. Sleep Telling someone who suffers from chronic anxiety to get plenty of sleep is somewhat naty to telling someone with a broken leg to walk it off. Anxiety disorders themselves are known to cause poor sleep . Despite this fact, research has uncovered a number of techniques that increase your chances of getting a good night's sleep, and any good self-care routine should include them. Scientists refer to your habits before sleep as your sleep hygiene, and good sleep hygiene includes maintaining a consistent sleep/wake cycle (i.e., going to bed and waking up at consistent times), quenching any thirst before bed, and reducing the amount of environmental noise in the dhuzybi13. You also want to decrease the amount of cognitive activity in the hours leading up to sleep17. For example, when working hard on a project for work or school, try to stop working at least an hour before going to sleep to let your brain wind down before bed. Reducing alcohol and tobacco use before bed can improve sleep quality as well18. In addition, all of the above self-care techniques, limiting caffeine , practicing rwwcefblzpx23, and maintaining a good exercise cpucaez55, help improve sleep. Avoid alcohol and nicotine. Having a few drinks may temporarily help you feel less anxious, but alcohol actually makes anxiety symptoms worse as it wears off. While it may seem like cigarettes are calming, nicotine is actually a powerful stimulant that leads to higher, not lower, levels of anxiety. Eat right. Food doesn't cause anxiety, but a healthy diet can help keep you on an even keel. Going too long without eating leads to low blood sugar--which can make you feel anxious and irritable--so start the day right with breakfast and continue with regular meals. Eat plenty of fruits, and vegetables, which stabilize blood sugar and boost serotonin, a neurotransmitter with calming effects. Reduce the amount of refined carbs and sugar you eat, too. Sugary snacks and desserts cause blood sugar to spike and then crash, leaving you feeling emotionally and physically drained. Self help websites https://[employer] zlo-tkunknfkn-gjanypfxre-therap i-xkpxkkwlwl-tfkjjdptvp/ https://www.nhs.uk/conditions/g kztzztnwvs-iapshyi-pltxripd/duane f-help/ https://www.helpguide.org/artic les/anxiety/generalized-anxiety -disorder-larisa.htm Self help book list: https://www.abct.org/SHBooks/in dex.cfm Online therapy: (paid services) https://www.[employer]/?tra nsaction_id=[email or web address] a5cxp927566&utm_source=affiliat e&utm_campaign=Natural+Intellig ence&utm_medium=Desktop&utm_con tent=&utm_term=&aff_click_id=&n ot_found=1&gor=rd_home https://www.[employer]/start/?transaction_id=9074k [email or web address]&utm_s ource=affiliate&utm_campaign=13 39&utm_medium=Desktop&utm_conte nt=&utm_term=%7BSource%7D&not_f ound=1&gor=start&go=true These are a sample of what you can find online for help for Anxiety. I have not read all of these books or gone through all of the course. These are meant to be suggestions for the kinds of help you can find for self help for anxiety. This is not an endorsement, and I do not have any financial investments in any of these sites. Associated Problem(s): Allergic rhinitis Use zrytec daily to help with allergies Stop benadryl and try the zrytec Associated Problem(s): Palpitations Will set up a heart monitor for 7 days to see if we can find out what is going on documented in this encounter [facility] 08-28-2022 Evaluation + Plan note Associated Problem(s): Anxiety Start taking lexapro to help with anxiety Anxiety Anxiety is a normal reaction to stress. Difficult situations can cause you to have symptoms such as sweaty palms and a nervous feeling. In an anxiety disorder, the symptoms are far more severe. Constant worry, muscle tension, trouble sleeping, nausea and diarrhea, and other symptoms can make normal daily activities difficult or impossible. These symptoms may occur for no reason, and they can affect your work, school, or social life. Medicines, counseling, and self-care can all help. Tips to help with anxiety Exercise Everyone knows that exercising helps you attain and maintain good physical health, but did you know that a consistent exercise routine can also help with anxiety1? In particular, aerobic exercise (e.g., running, swimming, walking2) can decrease both state (i.e., how you feel now) and trait (i.e., how you feel on a regular basis) anxiety3. Evidence suggests that developing a consistent routine where one exercises for 20 min or more per session provides the strongest benefits for anxiety. In fact, when used in such a way, exercise has been found to be so effective at helping with anxiety that some have suggested that it could serve as a clinical intervention and may even help prevent the development of anxiety disorders4. Thus, including a steady exercise routine as a part of your self-care can help to manage your anxiety over a long period of time. Before starting an exercise routine, consult with a medical professional to ensure that you are healthy enough for exercise and that you choose the exercise type that best fits your lifestyle. Limiting Caffeine Intake As an avid coffee drinker, I get quite defensive when anyone suggests I reduce my caffeine intake. However, as an individual with an anxiety disorder, I do need to keep an eye on how much of the drug I consume. Caffeine increases autonomic nervous system activation associated with wakefulness as well as zukfz-fl-rhmkcs . In other words, caffeine makes you more ready to act - something quite beneficial early on a Thursday morning. However, adding caffeine to an anxiety disorder can produce bad results. Evidence suggests that caffeine can increase anxiety on its cba42-68, and anxious individuals seem particularly vulnerable to this mvkmbe25. Consequently, if you experience elevated anxiety on a regular basis, then you want to monitor and/or reduce your caffeine intake. I am not advocating completely abstaining from caffeine (I certainly don't), but good self-care for anxiety includes making sure that you don't overdo it. Sleep Telling someone who suffers from chronic anxiety to get plenty of sleep is somewhat naty to telling someone with a broken leg to walk it off. Anxiety disorders themselves are known to cause poor sleep oschfsk29. Despite this fact, research has uncovered a number of techniques that increase your chances of getting a good night's sleep, and any good self-care routine should include them. Scientists refer to your habits before sleep as your sleep hygiene, and good sleep hygiene includes maintaining a consistent sleep/wake cycle (i.e., going to bed and waking up at consistent times), quenching any thirst before bed, and reducing the amount of environmental noise in the . You also want to decrease the amount of cognitive activity in the hours leading up to sleep17. For example, when working hard on a project for work or school, try to stop working at least an hour before going to sleep to let your brain wind down before bed. Reducing alcohol and tobacco use before bed can improve sleep quality as well18. In addition, all of the above self-care techniques, limiting caffeine uuckrp11, practicing qdpqlvbowvd83, and maintaining a good exercise , help improve sleep. Avoid alcohol and nicotine. Having a few drinks may temporarily help you feel less anxious, but alcohol actually makes anxiety symptoms worse as it wears off. While it may seem like cigarettes are calming, nicotine is actually a powerful stimulant that leads to higher, not lower, levels of anxiety. Eat right. Food doesn't cause anxiety, but a healthy diet can help keep you on an even keel. Going too long without eating leads to low blood sugar--which can make you feel anxious and irritable--so start the day right with breakfast and continue with regular meals. Eat plenty of fruits, and vegetables, which stabilize blood sugar and boost serotonin, a neurotransmitter with calming effects. Reduce the amount of refined carbs and sugar you eat, too. Sugary snacks and desserts cause blood sugar to spike and then crash, leaving you feeling emotionally and physically drained. Self help websites https://[employer]com/ map-drpbegsbm-gubqjanvuz-therap k-vgwnazralm-lgkubmrlae/ https://www.nhs.uk/conditions/g uvoxysfjof-qzycnwd-jpfujwtt/duane f-help/ https://www.helpguide.org/artic les/anxiety/generalized-anxiety -disorder-larisa.htm Self help book list: https://www.abct.org/SHBooks/in dex.cfm Online therapy: (paid services) https://www.[employer]/?tra nsaction_id=[email or web address] a7oil600813&utm_source=affiliat e&utm_campaign=Natural+Intellig ence&utm_medium=Desktop&utm_con tent=&utm_term=&aff_click_id=&n ot_found=1&gor=_home https://www.MobileSpaces/start/?transaction_id=9101x [email or web address]&utm_s ource=affiliate&utm_campaign=13 39&utm_medium=Desktop&utm_conte nt=&utm_term=%7BSource%7D&not_f ound=1&gor=start&go=true These are a sample of what you can find online for help for Anxiety. I have not read all of these books or gone through all of the course. These are meant to be suggestions for the kinds of help you can find for self help for anxiety. This is not an endorsement, and I do not have any financial investments in any of these sites. [facility] 08-28-2022 Evaluation + Plan note Associated Problem(s): Allergic rhinitis Use zrytec daily to help with allergies Stop benadryl and try the zrytec [facility] 08-28-2022 Evaluation + Plan note Associated Problem(s): Palpitations Will set up a heart monitor for 7 days to see if we can find out what is going on [facility] 08-28-2022 History of Presen t illness Narrative OFFICE VISIT PROGRESS NOTE Here today for Muscle Pain, Hypertension, and Palpitations ELVIA Lyons was seen on August 07 by Geovani Restrepo There is some issues with his red blood cells from when he was giving plasma CBC was ordered his hemoglobin had hematocrit were slightly above normal otherwise the CBC was normal Blood pressure was elevated in June and we started him on lisinopril CMP showed that his potassium was 5.6 And then recently started having muscle cramps, he feels that the started from when he started on the lisinopril, so we had him stop the lisinopril a couple of days ago The cramping is better now We can try a different medication for his blood pressure And repeat the blood tests Has been taking amino acids When giving plasma his heart rate has been elevated and his blood pressure was a bit high Fluttering and fast rate in the heart up to 130 Not related to food or caffeine but maybe anger when he gest upset Happens about once every 3 days Caffeine cut back 10 days ago 1 cup a day Start sweating or shaking Easily agitated Has had issues with anxiety for many years Passed out once Trazondone, Lexapro and paxil Has some arthritis in hips in the past Uses Benadryl off and on for allergies willing to try some Zyrtec instead The following portions of the patient's history were reviewed and updated as appropriate: allergies, current medications and problem list. The patient's surgical, family, and social history was reviewed and updated as appropriate. Review of Systems Review of Systems Constitutional: Negative for fever. HENT: Negative. Eyes: Negative. Respiratory: Positive for cough and wheezing. Negative for shortness of breath. Cardiovascular: Negative for chest pain. Gastrointestinal: Negative for abdominal pain. Neurological: Negative for dizziness and headaches. Psychiatric/Behavioral: Negative for sleep disturbance. The patient is nervous/anxious. Vitals: 08/28/22 1509 BP: 108/71 BP Location: Right arm Patient Position: Sitting BP Cuff Size: Adult Pulse: 90 SpO2: 97% Weight: 91.7 kg (202 lb 3.2 oz) BP Readings from Last 3 Encounters: 08/28/22 108/71 08/07/22 126/83 06/11/22 (!) 143/93 Wt Readings from Last 3 Encounters: 08/28/22 91.7 kg (202 lb 3.2 oz) 08/07/22 92.4 kg (203 lb 9.6 oz) 06/11/22 93.9 kg (207 lb 1.6 oz) Body mass index is 29.86 kg/m (pended). Physical Exam Eloy Arreola Is a 61 y.o.. male. Alert and oriented to person, time and place In No Acute Distress Constitutional: Appearance: Normal appearance, HEENT: Head; normocephalic Nose: clear, turbinates are swollen but pale Neck: soft and supple, FROM, no lymphadenopathy or masses No thyromegaly Cardiovascular Rate and Rhythm: Normal rate and regular rhythm: Heart sounds: Normal heart sounds, S1 normal, S2 normal Pulses: Radial pulses: normal and equal Pulmonary: Pulmonary effort is normal. No Respiratory Distress: Breath sounds are normal, no wheezing Back: no CVA tenderness Abdominal: Palpation: soft and non tender Normal bowel sounds No guarding or rebound Musculoskeletal: Normal ROM Lower extremities: no edema, Skin: is warm and dry, no rashes Neuro: No focal deficits Psych: behavior is normal, mood and affect are normal Assessment/Plan Problem List Items Addressed This Visit Respiratory Allergic rhinitis Use zrytec daily to help with allergies Stop benadryl and try the zrytec Relevant Medications cetirizine (ZYRTEC) 10 MG tablet Cardiovascular and Mediastinum Hypertension No meds for blood pressure Write down readings Other Palpitations Will set up a heart monitor for 7 days to see if we can find out what is going on Relevant Orders Cardiac event monitor Anxiety Start taking lexapro to help with anxiety Anxiety Anxiety is a normal reaction to stress. Difficult situations can cause you to have symptoms such as sweaty palms and a nervous feeling. In an anxiety disorder, the symptoms are far more severe. Constant worry, muscle tension, trouble sleeping, nausea and diarrhea, and other symptoms can make normal daily activities difficult or impossible. These symptoms may occur for no reason, and they can affect your work, school, or social life. Medicines, counseling, and self-care can all help. Tips to help with anxiety Exercise Everyone knows that exercising helps you attain and maintain good physical health, but did you know that a consistent exercise routine can also help with anxiety1? In particular, aerobic exercise (e.g., running, swimming, walking2) can decrease both state (i.e., how you feel now) and trait (i.e., how you feel on a regular basis) anxiety3. Evidence suggests that developing a consistent routine where one exercises for 20 min or more per session provides the strongest benefits for anxiety. In fact, when used in such a way, exercise has been found to be so effective at helping with anxiety that some have suggested that it could serve as a clinical intervention and may even help prevent the development of anxiety disorders4. Thus, including a steady exercise routine as a part of your self-care can help to manage your anxiety over a long period of time. Before starting an exercise routine, consult with a medical professional to ensure that you are healthy enough for exercise and that you choose the exercise type that best fits your lifestyle. Limiting Caffeine Intake As an avid coffee drinker, I get quite defensive when anyone suggests I reduce my caffeine intake. However, as an individual with an anxiety disorder, I do need to keep an eye on how much of the drug I consume. Caffeine increases autonomic nervous system activation associated with wakefulness as well as ynnms-ll-wdwllz khlzufiiz41. In other words, caffeine makes you more ready to act - something quite beneficial early on a Thursday morning. However, adding caffeine to an anxiety disorder can produce bad results. Evidence suggests that caffeine can increase anxiety on its rlk29-55, and anxious individuals seem particularly vulnerable to this . Consequently, if you experience elevated anxiety on a regular basis, then you want to monitor and/or reduce your caffeine intake. I am not advocating completely abstaining from caffeine (I certainly don't), but good self-care for anxiety includes making sure that you don't overdo it. Sleep Telling someone who suffers from chronic anxiety to get plenty of sleep is somewhat naty to telling someone with a broken leg to walk it off. Anxiety disorders themselves are known to cause poor sleep abdqitv52. Despite this fact, research has uncovered a number of techniques that increase your chances of getting a good night's sleep, and any good self-care routine should include them. Scientists refer to your habits before sleep as your sleep hygiene, and good sleep hygiene includes maintaining a consistent sleep/wake cycle (i.e., going to bed and waking up at consistent times), quenching any thirst before bed, and reducing the amount of environmental noise in the koetyfr00. You also want to decrease the amount of cognitive activity in the hours leading up to sleep17. For example, when working hard on a project for work or school, try to stop working at least an hour before going to sleep to let your brain wind down before bed. Reducing alcohol and tobacco use before bed can improve sleep quality as well18. In addition, all of the above self-care techniques, limiting caffeine yiwjav53, practicing vpgdddsgtij46, and maintaining a good exercise yyicwyc96, help improve sleep. Avoid alcohol and nicotine. Having a few drinks may temporarily help you feel less anxious, but alcohol actually makes anxiety symptoms worse as it wears off. While it may seem like cigarettes are calming, nicotine is actually a powerful stimulant that leads to higher, not lower, levels of anxiety. Eat right. Food doesn't cause anxiety, but a healthy diet can help keep you on an even keel. Going too long without eating leads to low blood sugar--which can make you feel anxious and irritable--so start the day right with breakfast and continue with regular meals. Eat plenty of fruits, and vegetables, which stabilize blood sugar and boost serotonin, a neurotransmitter with calming effects. Reduce the amount of refined carbs and sugar you eat, too. Sugary snacks and desserts cause blood sugar to spike and then crash, leaving you feeling emotionally and physically drained. Self help websites https://[employer] aix-yothaidbm-gmcoovbbss-therap b-hxvqipvkaq-ifxfxzbvwy/ https://www.nhs.uk/conditions/g bialsqqkyz-lntbkrk-lfazacwn/duane f-help/ https://www.helpguide.org/artic les/anxiety/generalized-anxiety -disorder-larisa.htm Self help book list: https://www.abct.org/SHBooks/in dex.cfm Online therapy: (paid services) https://www.[employer]ancing[employer]/?tra nsaction_id=[email or web address] [email or web address]&utm_source=affiliat e&utm_campaign=Natural+Intellig ence&utm_medium=Desktop&utm_con tent=&utm_term=&aff_click_id=&n ot_found=1&gor=rd_home https://www.[employer]aces/start/?transaction_id=9246v [email or web address]&utm_s ource=affiliate&utm_campaign=13 39&utm_medium=Desktop&utm_conte nt=&utm_term=%7BSource%7D&not_f ound=1&gor=start&go=true These are a sample of what you can find online for help for Anxiety. I have not read all of these books or gone through all of the course. These are meant to be suggestions for the kinds of help you can find for self help for anxiety. This is not an endorsement, and I do not have any financial investments in any of these sites. Other Visit Diagnoses Hyperkalemia - Primary Relevant Orders Basic Metabolic Panel Abnormal CBC Relevant Orders CBC and Differential Financial difficulties Relevant Orders Ambulatory referral to Social Work Blood pressure is very well controlled are very low today would not recommend a medication, we will monitor that and see how he does, if it goes up then we will rethink another location For allergies working to try Zyrtec For palpitations were can order a cardiac event monitor Will order blood work to follow his potassium and his CBC see how he is doing since he has been off of the Gatorade as well as off of the lisinopril For anxiety I am going to to start him on Lexapro 10 mg daily, and see if this helps Health Maintenance Due Topic Date Due Tetanus: Every 10yrs Never done Colorectal Cancer Screening Never done COVID-19 Vaccine (1) Never done Wellness Visit Never done Pneumococcal Vaccine: Ped or At-Risk (1 - PCV) Never done HIV Screening Never done Hepatitis C Screening Never done Zoster Vaccines (1 of 2) Never done Sequential Influenza Vaccine (1) Never done Return in about 4 weeks (around 09/25/2022). MDM Hypertension chronic issue Allergic rhinitis chronic issue medical management Anxiety new issue medical management Palpitations new issue tests ordered If any referrals were placed at today's visit the patient was instructed to call the office if they havn't heard anything about the referral within 2 weeks of today's visit. For any new medications prescribed today, patient was educated about indications for the medication, how to take the medication and potential side effects of the medications. Rafi Patel MD Please note: Portions of this chart may have been created with [employer] voice recognition software. Occasional wrong-word or sound-like substitutions may have occurred due to inherent limitations of the voice recognition software. Please read the chart carefully and recognize, using context, where the substitutions have occurred. documented in this encounter [facility] 08-07-2022 Instructions Geovani Restrepo CNP - 08/07/2022 10:19 AM EDT Lab tests Referral to general surgery for screening colonoscopy and to evaluate stool leakage Renewed the lisinopril for him. Follow up in 2-[address] Patel. documented in this encounter [facility] 08-07-2022 History of Presen t illness Narrative Patient: Eloy Arreola : 1960 Date: 08/07/22 This 61 y.o. male presents for Plasma issues and Gap Closure (Health Maintenance) (PSA Level Never done/Tetanus: Every 10yrs Never done/Colorectal Cancer Screening Never done/COVID-19 Vaccine(1) Never done/Wellness Visit Never done/Pneumococcal Vaccine: Ped or At-Risk(1 - PCV) Never done/HIV Screening Never done/Hepatitis C Screening Never done/Zoster Vaccines(1 of 2) Never done/Sequential Influenza Vaccine(1) Never done ) History of Present Illness: Was giving plasma and yesterday it was red instead of yellow. Normally was ok. Yesterday was pink. They could not accept the plasma. 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 Did Cologuard, got some notices, not sure what, received another kit in the mail and threw it away. Not sure what the problem was. Coughing for 4-5 years. (Had chest x-ray and CT chest in December 2021. He is decreasing his smoking. Down to 3-4 cigarettes a day. I offered him Hepatitis C and HIV screening. He said he does not need it because every time he gives plasma they check him. He declines vaccines today. Past Medical/Surgical History: Past Medical History: Diagnosis Date Asthma Depression Hypertension Past Surgical History: Procedure Laterality Date FOOT SURGERY Left mower accident when a child Family History: Family History Problem Relation Age of Onset Diabetes Mother Heart disease Father Social History: Social History Socioeconomic History Marital status: Tobacco Use Smoking status: Every Day Smokeless tobacco: Never Tobacco comments: 3-4 cigarettes Substance and Sexual Activity Alcohol use: No Drug use: Yes Types: Marijuana Comment: occasionally Allergies: Allergies Allergen Reactions Chlorzoxazone Medications: Current Outpatient Medications Medication Sig Dispense Refill albuterol 90 mcg/actuation inhaler Inhale 2 (two) puffs every 6 (six) hours as needed . 18 g 0 diphenhydrAMINE (BENADRYL) 50 MG capsule Take 1 (one) capsule (50 mg total) by mouth every 8 (eight) hours as needed for itching . (Patient not taking: Reported on 08/07/2022 .) 20 capsule 0 famotidine (PEPCID) 20 MG tablet Take 1 (one) tablet (20 mg total) by mouth 2 (two) times a day for 7 days . 14 tablet 0 lisinopriL (PRINIVIL,ZESTRIL) 10 MG tablet Take 1 (one) tablet (10 mg total) by mouth daily . 30 tablet 6 meloxicam (MOBIC) 15 MG tablet Take 1 (one) tablet (15 mg total) by mouth daily . (Patient not taking: Reported on 08/07/2022 .) 30 tablet 11 No current facility-administered medications for this visit. Review of Systems: Review of Systems Constitutional: Negative for chills, fatigue and fever. Respiratory: Positive for cough. Negative for shortness of breath. Cardiovascular: Positive for chest pain (occas. sharp twitch). Palpitations: occas heart flutter, for years, has been checked with Holter Monitor. Gastrointestinal: Positive for constipation and diarrhea (had for a week, stopped now). Sometimes is losing some stool Neurological: Negative for light-headedness (little when wakes up, off and on for 30 years) and headaches. Physical Exam: Vital Signs: BP 126/83 (BP Location: Left arm, Patient Position: Sitting, BP Cuff Size: X-large Adult) Pulse 76 Temp 98.4 F (36.9 C) (Infrared) Ht (P) 5' 9 Wt 92.4 kg (203 lb 9.6 oz) SpO2 97% BMI (P) 30.07 kg/m Physical Exam Vitals and nursing note reviewed. Constitutional: Appearance: Normal appearance. He is normal weight. HENT: Head: Normocephalic. Cardiovascular: Rate and Rhythm: Normal rate and regular rhythm. Heart sounds: Normal heart sounds. Pulmonary: Effort: Pulmonary effort is normal. Breath sounds: Normal breath sounds. Musculoskeletal: Cervical back: Neck supple. Skin: General: Skin is warm and dry. Neurological: Mental Status: He is alert and oriented to person, place, and time. Psychiatric: Mood and Affect: Mood normal. Behavior: Behavior normal. Thought Content: Thought content normal. Judgment: Judgment normal. Assessment/Plan: Eloy was seen today for plasma issues and gap closure (health maintenance). Diagnoses and all orders for this visit: Red blood cell abnormality - CBC and Differential; Future Primary hypertension - Comprehensive Metabolic Panel; Future - lisinopriL (PRINIVIL,ZESTRIL) 10 MG tablet; Take 1 (one) tablet (10 mg total) by mouth daily . Encounter for screening colonoscopy - Ambulatory referral to General Surgery; Future Prostate cancer screening - PSA, Screen; Future Fecal smearing Return if symptoms worsen or fail to improve. Patient Instructions Lab tests Referral to general surgery for screening colonoscopy and to evaluate stool leakage Renewed the lisinopril for him. Follow up in 2-[address] Patel. For any new medications prescribed today, patient was educated about indications for the medication, how to take the medication and potential side effects of the medications. Goals None documented in this encounter [facility] 06-11-2022 Evaluation + Plan note Associated Problem(s): Nodule of skin of right foot Will refer to surgery to evaluate for remvoal [facility] 06-11-2022 Miscellaneous Notes Associated Problem(s): Nodule of skin of right foot Will refer to surgery to evaluate for remvoal Associated Problem(s): Hypertension Start taking lisinopril 10 mg daily Associated Problem(s): Tobacco dependence Try to quit smoking Associated Problem(s): COPD (chronic obstructive pulmonary disease) (HCC) Use inhalers as needed Try to quit smoking documented in this encounter [facility] 06-11-2022 Evaluation + Plan note Associated Problem(s): Hypertension Start taking lisinopril 10 mg daily [facility] 06-11-2022 Evaluation + Plan note Associated Problem(s): Tobacco dependence Try to quit smoking [facility] 06-11-2022 Evaluation + Plan note Associated Problem(s): COPD (chronic obstructive pulmonary disease) (HCC) Use inhalers as needed Try to quit smoking [facility] 06-11-2022 History of Presen t illness Narrative Patient: Eloy Arreola : 1960 Date: 06/11/22 This 61 y.o. male presents as a new patient to get established for: Annual Exam (Having issues, only want to discuss with ) History of Present Illness: Eloy is new to me and here today for his first visit [facility] if he was not vaccinated for COVID he could not go there anymore Has had issues with COPD over the last couple years Treated a couple times for an exacerbation with prednisone and antibiotic Currently he is a smoker, he had a CT the pulmonary arteries done in December 2021, Has been cutting down, did use Chantix in the past Currently not on any medications Still has an inhaler using once in awhile Blood pressure is slightly above normal Has tried atenolol and it did not work Tried OTC herbs and he thought it helped Ready to take a medication Has a nodule on the right heel for about 2 years It is painful when it rubs on shoes Not feeling depressed right now Blood work including PSA, willing to do that Vaccines, not interested in COVID-vaccine but will consider the other ones Colon cancer screening, willing to do Cologuard but not colonoscopy Past Medical/Surgical History: Past Medical History: Diagnosis Date Asthma Depression Hypertension Past Surgical History: Procedure Laterality Date FOOT SURGERY Left mower accident when a child Family History: Family History Problem Relation Age of Onset Diabetes Mother Heart disease Father Social History: Social History Socioeconomic History Marital status: Tobacco Use Smoking status: Every Day Smokeless tobacco: Never Tobacco comments: 3-4 cigarettes Substance and Sexual Activity Alcohol use: No Drug use: Yes Types: Marijuana Comment: occasionally Allergies: Allergies Allergen Reactions Chlorzoxazone Medications: Current Outpatient Medications Medication Sig Dispense Refill albuterol 90 mcg/actuation inhaler Inhale 2 (two) puffs every 6 (six) hours as needed . 18 g 0 diphenhydrAMINE (BENADRYL) 50 MG capsule Take 1 (one) capsule (50 mg total) by mouth every 8 (eight) hours as needed for itching . 20 capsule 0 famotidine (PEPCID) 20 MG tablet Take 1 (one) tablet (20 mg total) by mouth 2 (two) times a day for 7 days . 14 tablet 0 lisinopriL (PRINIVIL,ZESTRIL) 10 MG tablet Take 1 (one) tablet (10 mg total) by mouth daily . 30 tablet 1 meloxicam (MOBIC) 15 MG tablet Take 1 (one) tablet (15 mg total) by mouth daily . 30 tablet 11 No current facility-administered medications for this visit. Review of Systems: Review of Systems Constitutional: Negative for appetite change and fever. HENT: Positive for dental problem and sinus pressure. Negative for sinus pain. Eyes: Negative for visual disturbance. Respiratory: Positive for cough and wheezing. Negative for shortness of breath. Cardiovascular: Negative for chest pain. Gastrointestinal: Positive for diarrhea. Negative for abdominal pain, constipation, nausea and vomiting. Endocrine: Negative for cold intolerance and heat intolerance. Genitourinary: Negative for difficulty urinating. Musculoskeletal: Positive for arthralgias. Gait problem: hips. Skin: Negative for rash. Allergic/Immunologic: Negative for food allergies. Neurological: Positive for light-headedness. Negative for dizziness and headaches. Psychiatric/Behavioral: Negative for sleep disturbance. The patient is nervous/anxious. Some depression Physical Exam: Vital Signs: BP (!) 143/93 (BP Location: Right arm, Patient Position: Sitting, BP Cuff Size: Adult) Pulse 82 Temp 98.2 F (36.8 C) (Infrared) Ht 5' 9 Wt 93.9 kg (207 lb 1.6 oz) SpO2 97% BMI 30.58 kg/m Physical Exam Eloy Arreola Is a 61 y.o.. male. Alert and oriented to person, time and place In No Acute Distress Constitutional: Appearance: Normal appearance, overweight HEENT: Head; normocephalic Right Ear: Tympanic Membrane and external ear normal, Left Ear: Tympanic Membrane and external ear normal, Right eye: Conjunctiva/sclera normal Left eye: conjunctiva/sclera normal Pupils: Pupils are equal, round, and reactive to light, Extra occular motion is Intact Nose: clear, turbinates are normal Mouth/Throat: clear, Mucus Membranes are Moist, tonsils not enlarged, Pharynx: Uvula is midline, Posterior Pharynx is not injected Neck: soft and supple FROM no lymphadenopathy or masses No thyromegaly Cardiovascular Rate and Rhythm: Normal rate and regular rhythm: Heart sounds: Normal heart sounds, S1 normal, S2 normal Pulses: Radial pulses: normal and equal Pulmonary: Pulmonary effort is normal. No Respiratory Distress: Breath sounds are normal, no wheezing Back: no CVA tenderness Abdominal: Palpation: soft and non tender Normal bowel sounds No guarding or rebound Musculoskeletal: Normal ROM Lower extremities: no edema, On the back of the right foot just slightly medial there is about a 1 to 1.5 cm soft nodule under the skin that is nontender to palpation, could be a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 [employer] Assembly Diagnoses Financial difficulties Rafi Patel MD [address] [place] [address] Referral ID Status Reason Start Date Expiration Date Visits Requested Visits Authorized [id number] Authorized Specialty Services Required/Pat ient's Best Interest 08/28/2023 1 1 * Cardio (Routine) - Authorized Specialty Diagnoses / Procedures Referred By Scott t Referred To Contact Cardiology Diagnoses Palpitations Procedures Cardiac event monitor Rafi Patel MD [address] [place] [address] [place] [address] Referral ID Status Reason Start Date Expiration Date V isits Requested Visits Authorized [id number] Authorized 09/04/2022 09/04/2023 1 1 [facility] for referral (narrative)* Consultation (Routine) - Authorized Specialty Diagnoses / Procedures Referred By Contac t Referred To Contact Primary Care Procedures Follow Up In Primary Care Ja Borges DO [address] [address] Referral ID Status Reason Start Date Expiration Date V isits Requested Visits Authorized [id number] Authorized 02/02/2023 08/01/2023 1 1 * Cardiac Stress Testing (Routine) - Closed Specialty Diagnoses / Procedures Referred By Contac t Referred To Contact Cardiology Diagnoses Palpitations Procedures Holter or Event Psych Nurse Ja Borges DO [address] [address] Referral ID Status Reason Start Date Expiration Date Visits Re quested Visits Authorized [id number] Closed 02/02/2023 08/01/2023 1 1 [facility] Work Phone: Reason for referral (narrative)* Consultation (Routine) - Authorized Specialty Diagnoses / Procedures Referred By Contac t Referred To Contact Primary Care Diagnoses Urinary hesitancy Nocturia Right hip pain Prostate cancer screening Thrombocytopenia ([facility]/HCC) Primary hypertension Dyslipidemia Procedures Follow Up In Primary Care Ja Borges DO [address] [address] Referral ID Status Reason Start Date Expiration Date V isits Requested Visits Authorized [id number] Authorized 03/31/2023 09/27/2023 1 1 * Consultation (Routine) - Authorized Specialty Diagnoses / Procedures Referred By Contac t Referred To Contact Urology Diagnoses Urinary hesitancy Nocturia Procedures HI OFFICE/OUTPATIENT NEW HIGH MDM 60-74 MINUTES aJ Borges DO [address] [address] Referral ID Status Reason Start Date Expiration Date Visits Requested Visits Authorized [id number] Authorized Specialty Services Required 03/31/2023 09/27/2023 1 1 [facility] Work Phone: Reason for referral (narrative)* Consultation (Routine) - Authorized Specialty Diagnoses / Procedures Referred By Contac t Referred To Contact Family Medicine / Primary Care Shantel Zamora DO [address] [place] [address] Referral ID Status Reason Start Date Expiration Date Visits Requested Visits Authorized [id number] Authorized Specialty Services Required 10/08/2023 10/07/2024 1 1 [facility] Work Phone: Relnfg for referral (narrative)* Consultation (Routine) - Authorized Specialty Diagnoses / Procedures Referred By Contac t Referred To Contact Primary Care Diagnoses Chronic right-sided low back pain with right-sided sciatica Procedures Follow Up In Primary Care - Medicare Annual Ja Borges DO [address] [place] [phone] Referral ID Status Reason Start Date Expiration Date V isits Requested Visits Authorized [id number] Authorized 10/08/2023 10/07/2024 1 1 * Consultation (Routine) - Authorized Specialty Diagnoses / Procedures Referred By Contac t Referred To Contact Pain Medicine Diagnoses Chronic right-sided low back pain with right-sided sciatica Ja Borges DO [address] [address] Referral ID Status Reason Start Date Expiration Date Visits Requested Visits Authorized [id number] Authorized Specialty Services Required 10/08/2023 10/07/2024 1 1 Scheduling Instructions [facility] Work Phone: Reason for referral (narrative)* Consultation (Routine) - Authorized Specialty Diagnoses / Procedures Referred By Scott comer Referred To Contact Ophthalmology Diagnoses Vision changes Kyle Emery MD [address] [place] [id number] Other - CUSTODIAL [address] [place] [address] Referral ID Status Reason Start Date Expiration Date Visits Requested Visits Authorized [id number] Authorized Specialty Services Required 12/03/2023 12/02/2024 1 1 Scheduling Instructions Schedule with [facility] [place] * Consultation (Routine) - Authorized Specialty Diagnoses / Procedures Referred By Scott comer Referred To Contact Primary Care Diagnoses Primary hypertension Thrombocytopenia (CMS/HCC) Prediabetes Anxiety Current mild episode of major depressive disorder without prior episode (CMS/HCC) Chronic right-sided low back pain with right-sided sciatica Screening for prostate cancer Encounter for screening for malignant neoplasm of colon Vision changes Dyslipidemia Procedures Follow Up In Primary Care - Established Kyle Emery MD [address] [place] [id number] Referral ID Status Reason Start Date Expiration Date V isits Requested Visits Authorized [id number] Authorized 12/03/2023 12/02/2024 1 1 [facility] Work Phone: Discharge Instructions * Contreras Ruiz MD - 11/05/2018 He can take Tylenol as directed along with prescribed medications for discomfort over the next 2-4 days. [facility] so [facility] can look [facility] these. Call them today to schedule follow-up appointment. The following attachments cannot be sent through Care Everywhere. * Cervical Strain, Understanding (Tristanian) * Headache, Tension (Tristanian) in this encounter* Attachments The following attachments cannot be sent through Care Everywhere. * Scabies (Tristanian) documented in this encounter* Attachments The following attachments cannot be sent through Care Everywhere. * Scabies (Tristanian) * Bronchitis with Inhaler ([facility]) ([place]) documented in this encounter* Attachments The following attachments cannot be sent through Care Everywhere. * Allergic Reaction (T[place]anian) documented in this encounter* Attachments The following attachments cannot be sent through Care Everywhere. * Generalized Anxiety Disorder: General Info (Tristanian) documented in this encounter Assessments Diagnosis Cervical strain, acute, initial encounter- Primary Acute non intractable tension-type headache Diagnosis Itching Unspecified pruritic disorder Diagnosis Bronchitis Bronchitis, not specified as acute or chronic Scabies Diagnosis Allergic reaction, initial encounter Diagnosis Anxiety Anxiety state, unspecified Tachycardia Unspecified tachycardia Diagnosis Strain of right hamstring, initial encounter- Primary Summary Purpose Family History No Family History Records FoundUnknown Family Member Name Dates Details Family history of hypertensi on: Father, Mother(V17.49, Z82.49) Status:Active Family history of hyperlipid emia: Father(V18.19, Z83.438) Status:Active Family history of cerebrovas cular accident (CVA): Father(V17.1, Z82.3) Status:Active Family history of diabetes m ellitus: Mother(V18.0, Z83.3) Status:Active Unknown Family Member Name Dates Details Family history of hypertensi on: Father, Mother(V17.49, Z82.49) Status:Active Family history of hyperlipid emia: Father(V18.19, Z83.438) Status:Active Family history of cerebrovas cular accident (CVA): Father(V17.1, Z82.3) Status:Active Family history of diabetes m ellitus: Mother(V18.0, Z83.3) Status:Active Unknown Family Member Name Dates Details Family history of hypertensi on: Father, Mother(V17.49, Z82.49) Status:Active Family history of hyperlipid emia: Father(V18.19, Z83.438) Status:Active Family history of cerebrovas cular accident (CVA): Father(V17.1, Z82.3) Status:Active Family history of diabetes m ellitus: Mother(V18.0, Z83.3) Status:Active Advance Directives No Advanced Directives Records FoundDocuments on File Type Date Recorded 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 male being seen today, 11/24/18, Chief Complaint Patient presents with Right Leg - Pain [chief complaint] buttock posterior lateral thigh pain HPI Dictation: [hpi] reports being attacked by a pit bull which was seen in the emergency room on 10/18/2018 apparently the dog lunged at him he struck the dog fell backwards the goal of his dog the put bolus and run after his dog and he jumped up and tried to run after his dog and he felt a sudden pulling tearing pain in the posterior lateral aspect of his right proximal thigh radiates down to the lateral aspect of his knee was seen in the ER had x-rays taken which were unremarkable placed on Percocet Physical Exam Dictation: [PE] likely seems to have a strain hamstring tenderness at the origin proximally and insertion distally Assessment and Plan Dictation: Hamstring strain plan conservative treatment physical therapy meloxicam will see him in 3 or 4 weeks I have reviewed all relevant histories, medications, allergies, and problem list items with Eloy Arguello during this visit. Review of Systems Constitutional: Negative for chills and fever. HENT: Negative for congestion. Respiratory: Negative for shortness of breath. Cardiovascular: Negative for chest pain. Gastrointestinal: Negative for diarrhea, nausea and vomiting. Neurological: Negative for headaches. Psychiatric/Behavioral: Negative for behavioral problems. BP (!) 141/91 Pulse (!) 106 Resp 18 Ht 6' 2 Wt 91.2 kg (201 lb) BMI 25.81 kg/m Imaging: No results found. SNOMED CT(R) 1. Strain of right hamstring, initial encounter Return in about 4 weeks (around 12/22/2018). Juancho Rose MD in this encounter Reason for Referral Specialty Diagnoses / Procedures Referred By Contac t Referred To Contact General Surgery Diagnoses Nodule of skin of right foot Rafi Patel MD [address] [place] [address] [facility] [address] [facility] Medical Office Building[address] [place] [address] Referral ID Status Reason Start Date Expiration Date V isits Requested Visits Authorized [id number] Authorized 06/11/2022 06/11/2023 1 1 Specialty Diagnoses / Procedures Referred By Contac t Referred To Contact General Surgery Diagnoses Encounter for screening colonoscopy Geovani Restrepo, IGGY [address] [place] [address] [facility] [address] [facility] Medical Office [facility], [address] [place] [address] Referral ID Status Reason Start Date Expiration Date V isits Requested Visits Authorized [id number] Authorized 08/07/2022 08/07/2023 1 1 Specialty Diagnoses / Procedures Referred By Contac t Referred To Contact Cardiology Diagnoses Primary hypertension Palpitations Procedures Transthoracic Echo Complete Transthoracic Echo Complete HI ECHO TTHRC R-T 2D W/WOM-MODE COMPL SPEC&COLR D Kyle Emery MD [address] [place] [address] Referral ID Status Reason Start Date Expiration Date Visits Requested Visits Authorized [id number] Pending Review Perform Procedure 01/07/2024 01/06/2025 1 1 Specialty Diagnoses / Procedures Referred By Contac t Referred To Contact Diagnoses Palpitations Procedures ECG 12 Lead Kyle Emery MD [address] [place] [address] Referral ID Status Reason Start Date Expiration Date V isits Requested Visits Authorized [id number] Authorized 01/07/2024 01/06/2025 1 1 Specialty Diagnoses / Procedures Referred By Contac t Referred To Contact Pain Medicine Diagnoses Chronic right-sided low back pain with right-sided sciatica Kyle Emery MD [address] [place] [address] Judson Mcdonough MD [address] [place] [address] Referral ID Status Reason Start Date Expiration Date Visits Requested Visits Authorized [id number] Authorized Consult and Treat 01/07/2024 01/06/2025 1 1 Specialty Diagnoses / Procedures Referred By Contac t Referred To Contact Cardiology Diagnoses Palpitations Procedures Holter Or Event Psych Nurse Kyle Emery MD [address] [place] [address] Referral ID Status Reason Start Date Expiration Date V isits Requested Visits Authorized [id number] Pending Review 01/07/2024 01/06/2025 1 1 Specialty Diagnoses / Procedures Referred By Contac t Referred To Contact Primary Care Diagnoses Primary hypertension Thrombocytopenia (CMS/HCC) Prediabetes Anxiety Current mild episode of major depressive disorder without prior episode (CMS/HCC) Chronic right-sided low back pain with right-sided sciatica Screening for prostate cancer Encounter for screening for malignant neoplasm of colon Vision changes Dyslipidemia Routine general medical examination at health care facility Palpitations Procedures Follow Up In Primary Care - Established Kyle Emery MD [address] [place] [id number] Referral ID Status Reason Start Date Expiration Date V isits Requested Visits Authorized [id number] Authorized 01/07/2024 01/06/2025 1 1 Chief Complaint establish care. [facility] years [facility]. Has been on lisinopril in the past for blood pressurePer nurse shaka Higgins came to office asking for his TDAP shot. He was in the office yesterday and Dr. Borges order it however he had decided to get the injection later Boostrix TDAP was given in the Right deltoid no eaction Tolerated well Establishing with Urinary Hesitancy Additional Source Comments Reason for Visit (unrecogniz ed section and content) Reason Comments Rash Reason Comments Other Pt presents with mol d exposire and mold mites. PT reports this has been going on for two years. Reason Comments Leg Swelling Tachycardia Reason Comments Pain Reason Comments Shortness of Breath Since 0100 this morn ing Reason Comments Annual Exam Having issues, only want to discuss with Reason Comments Plasma issues Gap Closure (Health Maintenance) PSA Lev el Never doneTetanus: Every 10yrs Never doneColorectal Cancer Screening Never doneCOVID-19 Vaccine(1) Never doneWellness Visit Never donePneumococcal Vaccine: Ped or At-Risk(1 - PCV) Never doneHIV Screening Never doneHepatitis C Screening Never doneZoster Vaccines(1 of 2) Never doneSequential Influenza Vaccine(1) Never done Reason Comments Muscle Pain Hypertension Palpitations Reason Comments Follow-up Hypertension Reason Comments Back Pain Chronic lower back p ain. Degenerative discs. Pain down right leg. 07/12 Reason Comments Diarrhea Pt states that yeste rday he ate some ham that had sat out for too long and started having red/blood tinged diarrhea that later turned green in color. Pt also c/o mild abd pain. 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 Reason Comments Welcome To Medicare 1 [facility] Specialty Diagnoses / Procedures Referred By Contac t Referred To Contact Primary Care Diagnoses Primary hypertension Thrombocytopenia (CMS/HCC) Prediabetes Anxiety Current mild episode of major depressive disorder without prior episode (CMS/HCC) Chronic right-sided low back pain with right-sided sciatica Screening for prostate cancer Encounter for screening for malignant neoplasm of colon Vision changes Dyslipidemia Procedures Follow Up In Primary Care - Established Kyle Emery MD [address] [place] [address] Referral ID Status Reason Start Date Expiration Date V isits Requested Visits Authorized [id number] Authorized 12/03/2023 12/02/2024 1 1 (unrecognized sect ion and content) No Status Records FoundNo Status Records FoundNo Status Records FoundNo Status Records FoundNo Status Records FoundNo Status Records FoundNo Status Records FoundNo Status Records FoundNo Status Records FoundNo Status Records Found INFORMATION SOURCE (unrecogn ized section and content) DATE CREATED AUTHOR AUTHOR'S ORGANIZ ATION 01/26/2022 [facility] DATE CREATED AUTHOR AUTHOR'S ORGANIZ ATION 08/08/2022 [facility] DATE CREATED AUTHOR AUTHOR'S ORGANIZ ATION 12/21/2022 [facility] DATE CREATED AUTHOR AUTHOR'S ORGANIZ ATION 04/24/2023 [employer] DATE CREATED AUTHOR AUTHOR'S ORGANIZ ATION 05/01/2023 [facility] DATE CREATED AUTHOR AUTHOR'S ORGANIZ ATION 05/19/2023 [facility] DATE CREATED AUTHOR AUTHOR'S ORGANIZ ATION 11/28/2023 [facility] DATE CREATED AUTHOR AUTHOR'S ORGANIZ ATION 12/07/2023 [facility] DATE CREATED AUTHOR AUTHOR'S ORGANIZ ATION 01/08/2024 [facility] Ambulatory Tiffanie Grajeda RN - 12/06/2019 10:36 AM Gabby Mesa PA-C - 12/06/2019 10:24 AM Fabiola Noel RN - 01/28/2020 11:07 PM Angela Villanueva PA- C - 01/28/2020 10:10 PM EDT ED Notes (unrecognized secti on and content) Pt states he has bites all over his arms, states the objets look like mites. Pt has a few small scabs over arms ED PROVIDER NOTE EMERGENCY DEPARTMENT NAME: Eloy Arreola AGE: 59 y.o. : 1960 VISIT DATE: 12/06/2019 CSN: [id number] PCP: Julienne Yadav CNP No chief complaint on file. Patient is concerned with bites to skin Terrible itching Worse at night Patient feels certain that he is pulling bugs off his skin Ongoing for more than a month History provided by: Patient Past Medical History: Diagnosis Date Asthma No past surgical history on file. Family History Problem Relation Age of Onset Diabetes Mother Social History Socioeconomic History Marital status: Spouse name: Not on file Number of children: Not on file Years of education: Not on file Highest education level: Not on file Occupational History Not on file Social Needs Financial resource strain: Not on file Food insecurity Worry: Not on file Inability: Not on file Transportation needs Medical: Not on file Non-medical: Not on file Tobacco Use Smoking status: Current Every Day Smoker Smokeless tobacco: Never Used Substance and Sexual Activity Alcohol use: No Drug use: No Sexual activity: Not on file Lifestyle Physical activity Days per week: Not on file Minutes per session: Not on file Stress: Not on file Relationships Social connections Talks on phone: Not on file Gets together: Not on file Attends yazdanism service: Not on file Active member of club or organization: Not on file Attends meetings of clubs or organizations: Not on file Relationship status: Not on file Other Topics Concern Not on file Social History Narrative Not on file Previous Medications Medication Sig meloxicam (MOBIC) 15 MG tablet Take 1 (one) tablet (15 mg total) by mouth daily . No Known Allergies Review of Systems Skin: Positive for rash. All other systems reviewed and are negative. No data found. Physical Exam Vitals signs and nursing note reviewed. Constitutional: Appearance: He is normal weight. HENT: Nose: Nose normal. Mouth/Throat: Mouth: Mucous membranes are moist. Eyes: Conjunctiva/sclera: Conjunctivae normal. Musculoskeletal: Normal range of motion. Skin: General: Skin is warm. Capillary Refill: Capillary refill takes less than 2 seconds. Comments: Excoriations to bilateral arms, legs and abdomen. Very mild and sporatic Neurological: General: No focal deficit present. Mental Status: He is alert and oriented to person, place, and time. Psychiatric: Attention and Perception: Attention normal. Mood and Affect: Mood normal. Speech: Speech normal. Behavior: Behavior normal. Behavior is cooperative. Thought Content: Thought content normal. Cognition and Memory: Cognition normal. Judgment: Judgment normal. Laboratory & Radiographic Imaging (if done): No results found for this visit on 12/06/19. No orders to display Procedures MDM The patient has been informed that they may have pre-hypertension or hypertension based on a blood pressure reading in the Emergency Department. I recommend that the patient call the primary care provider listed on their discharge instructions or a physician of their choice as soon as possible to arrange follow-up in the next 4 weeks for further evaluation of possible pre-hypertension or hypertension. . Clinical Impression: 1. Itching 1. Itching possible scabies ED Disposition ED Disposition Condition Comment Discharge Stable Eloy Arreola discharged to home/self care in stable condition. Follow-up Information 1. Julienne Yadav CNP. Specialties: Family Medicine, Nurse Practitioner [address] [facility] [address] Contact information for after-discharge care Follow-up information has not been specified. New Prescriptions permethrin (ELIMITE) 5 % cream Apply topically once Apply from neck down. One time. Wash off 12 hours later. for 1 dose . diphenhydrAMINE (BENADRYL) 25 mg capsule Take 1 (one) capsule (25 mg total) by mouth every 6 (six) hours as needed for itching . Gabby Miles PA-C 12/06/19 1028 documented in this encounter Pt ambulated out of ED with a steady gait and denies any needs prior to departure. Pt verbalized understanding of prescriptions and follow up instructions [facility] ED Provider Note: NAME: Eloy Arreola 59 y.o. CSN: [id number] PCP: Lyn Orozco CNP History: Chief Complaint: Rash HPI: The history was obtained from the patient. He is a 59 y.o. male who presents with a chief complaint of Rash. Patient states he just put on a flannel nightgown to watch some TV he had not worn it in quite some time and when he put it on it started to itch significantly especially on his chest back and arms. He states that he thinks he is having allergic reaction to it. He states that he thought he saw some small black things not really bugs and he cannot really explain what they were but he thinks that may be what he is allergic to. States that he started to itch and have a rash all over. He is having no chest pain no trouble breathing no trouble swallowing. He states he has had reactions like this in the past but is not sure what they were to. PMHx: Past Medical History: Diagnosis Date Asthma Depression Hypertension PMSx: History reviewed. No pertinent surgical history. FAM. Hx: Family History Problem Relation Age of Onset Diabetes Mother SOC. Hx: Social History Socioeconomic History Marital status: Spouse name: Not on file Number of children: Not on file Years of education: Not on file Highest education level: Not on file Occupational History Not on file Social Needs Financial resource strain: Not on file Food insecurity Worry: Not on file Inability: Not on file Transportation needs Medical: Not on file Non-medical: Not on file Tobacco Use Smoking status: Current Every Day Smoker Smokeless tobacco: Never Used Tobacco comment: 3-4 cigarettes Substance and Sexual Activity Alcohol use: No Drug use: Yes Types: Marijuana Comment: occasionally Sexual activity: Not on file Lifestyle Physical activity Days per week: Not on file Minutes per session: Not on file Stress: Not on file Relationships Social connections Talks on phone: Not on file Gets together: Not on file Attends yazdanism service: Not on file Active member of club or organization: Not on file Attends meetings of clubs or organizations: Not on file Relationship status: Not on file Other Topics Concern Not on file Social History Narrative Not on file MEDs: Previous Medications Medication Sig meloxicam (MOBIC) 15 MG tablet Take 1 (one) tablet (15 mg total) by mouth daily . [DISCONTINUED] diphenhydrAMINE (BENADRYL) 25 mg capsule Take 1 (one) capsule (25 mg total) by mouth every 6 (six) hours as needed for itching . ALL: Allergies Allergen Reactions Chlorzoxazone ROS: Positives and pertinent negatives as per HPI. All other systems were reviewed and are negative. Physical Exam: Patient Vitals for the past 24 hrs: BP Temp Temp src Pulse Resp SpO2 Height Weight 01/28/20 2200 (!) 150/94 01/28/20 2159 (!) 150/100 98.2 F (36.8 C) Oral 99 18 95 % 6' 1 97.5 kg (215 lb) Physical Exam Vitals signs and nursing note reviewed. Constitutional: General: He is not in acute distress. Appearance: He is well-developed. He is not diaphoretic. HENT: Head: Normocephalic and atraumatic. Mouth/Throat: Pharynx: No oropharyngeal exudate or posterior oropharyngeal erythema. Eyes: General: No scleral icterus. Conjunctiva/sclera: Conjunctivae normal. Neck: Musculoskeletal: Normal range of motion and neck supple. Cardiovascular: Rate and Rhythm: Normal rate and regular rhythm. Heart sounds: No murmur. Pulmonary: Effort: Pulmonary effort is normal. No respiratory distress. Breath sounds: Normal breath sounds. No wheezing. Abdominal: General: There is no distension. Palpations: Abdomen is soft. Tenderness: There is no abdominal tenderness. Musculoskeletal: Normal range of motion. General: No deformity or signs of injury. Skin: Findings: Rash present. Comments: Patient has an erythematous slightly raised rash over his arms chest and back a little bit on his abdomen. Nothing on his legs. This does appear to be allergic in nature Neurological: General: No focal deficit present. Mental Status: He is alert and oriented to person, place, and time. Cranial Nerves: No cranial nerve deficit. Sensory: No sensory deficit. Motor: No weakness. Coordination: Coordination normal. Psychiatric: Behavior: Behavior normal. Thought Content: Thought content normal. Judgment: Judgment normal. Laboratory & Radiological Imaging (if done): Labs Reviewed - No data to display No orders to display Procedures: Procedures ED Course / Medical Decision Making: Patient will be given prescriptions for prednisone Benadryl and will take Pepcid here. He was discharged in stable condition to follow-up with his family doctor and return if he has any change or worsening of his symptoms. He was given his first doses here before leaving The patient has been informed that they may have pre-hypertension or hypertension based on a blood pressure reading in the Emergency Department. I recommend that the patient call the primary care provider listed on their discharge instructions or a physician of their choice as soon as possible to arrange follow-up in the next 4 weeks for further evaluation of possible pre-hypertension or hypertension. . Clinical Impression: 1. Allergic reaction, initial encounter Disposition: Patient is being discharged to home New Prescriptions diphenhydrAMINE (BENADRYL) 50 MG capsule Take 1 (one) capsule (50 mg total) by mouth every 8 (eight) hours as needed for itching . predniSONE (DELTASONE) 20 MG tablet Take 1 (one) tablet (20 mg total) by mouth 2 (two) times a day for 5 days . famotidine (PEPCID) 20 MG tablet Take 1 (one) tablet (20 mg total) by mouth 2 (two) times a day for 7 days . Angela Lira PA-C [facility] Emergency Department Angela Lira PA-C 01/28/20 2258 Pt reports approx 10 minutes ago he took a shirt out of his closet and put it on, and immediatley started to itch. Pt states he noticed a bunch a black things on it and felt biting. Pt noted to have red rash and hive like areas to chest and bilateral arms. Pt denies any SOB, and throat discomfort documented in this encounter [facility] ED Attending Note: NAME: Eloy Arreola 59 y.o. CSN: [id number] PCP: Lyn Orozco CNP History: Chief Complaint: Leg Swelling and Tachycardia HPI: The history was obtained from the patient. Eloy is a 59 y.o. male who presents with a chief complaint of Leg Swelling and Tachycardia. It is a 59-year-old male with a history of anxiety who presents from home with complaints of feeling that his heart rate was fast. He states he began noticing this, and then became more and more anxious about it. He also states that 2 days ago, his feet appeared swollen to him. That is since resolved. He called the [facility] who told him to come to the emergency department to be evaluated. On arrival the patient is awake and alert but appears anxious. He is intermittently hyperventilating. He is able to easily calm with gentle self-direction. He denies any chest pain or shortness of breath. PMHx: Past Medical History: Diagnosis Date Asthma Depression Hypertension PMSx: History reviewed. No pertinent surgical history. FAM. Hx: Family History Problem Relation Age of Onset Diabetes Mother SOC. Hx: Social History Socioeconomic History Marital status: Spouse name: Not on file Number of children: Not on file Years of education: Not on file Highest education level: Not on file Occupational History Not on file Social Needs Financial resource strain: Not on file Food insecurity Worry: Not on file Inability: Not on file Transportation needs Medical: Not on file Non-medical: Not on file Tobacco Use Smoking status: Current Every Day Smoker Smokeless tobacco: Never Used Tobacco comment: 3-4 cigarettes Substance and Sexual Activity Alcohol use: No Drug use: Yes Types: Marijuana Comment: occasionally Sexual activity: Not on file Lifestyle Physical activity Days per week: Not on file Minutes per session: Not on file Stress: Not on file Relationships Social connections Talks on phone: Not on file Gets together: Not on file Attends yazdanism service: Not on file Active member of club or organization: Not on file Attends meetings of clubs or organizations: Not on file Relationship status: Not on file Other Topics Concern Not on file Social History Narrative Not on file MEDs: Previous Medications Medication Sig diphenhydrAMINE (BENADRYL) 50 MG capsule Take 1 (one) capsule (50 mg total) by mouth every 8 (eight) hours as needed for itching . famotidine (PEPCID) 20 MG tablet Take 1 (one) tablet (20 mg total) by mouth 2 (two) times a day for 7 days . meloxicam (MOBIC) 15 MG tablet Take 1 (one) tablet (15 mg total) by mouth daily . ALL: Allergies Allergen Reactions Chlorzoxazone ROS: Positives and pertinent negatives as per HPI. All other systems were reviewed and are negative. Physical Exam: Patient Vitals for the past 24 hrs: BP Temp Temp src Pulse Resp SpO2 Weight 02/10/20 1337 (!) 136/98 (!) 103 16 97 % 02/10/20 1324 (!) 145/109 98.6 F (37 C) Oral (!) 113 18 97 % 86.6 kg (191 lb) Physical Exam Constitutional: Appearance: Normal appearance. Comments: Appears slightly anxious. HENT: Head: Normocephalic. Cardiovascular: Rate and Rhythm: Normal rate and regular rhythm. Pulmonary: Effort: Pulmonary effort is normal. Abdominal: General: Abdomen is flat. Bowel sounds are normal. Palpations: Abdomen is soft. Musculoskeletal: Normal range of motion. Comments: No evidence of lower extremity edema. Skin: General: Skin is warm and dry. Comments: No evidence of lower extremity erythema. Neurological: General: No focal deficit present. Mental Status: He is alert and oriented to person, place, and time. Psychiatric: Comments: Appears anxious, but able to calm himself. Laboratory & Radiological Imaging (if done): Labs Reviewed - No data to display No orders to display Procedures: Procedures ED Course / Medical Decision Making: The patient is reassured. He admits that he thinks he is having an anxiety attack. He states he is feeling much better now that he knows that he is not having abnormal EKG findings that his blood pressure is also normal. He will be discharged home with outpatient follow-up. . Clinical Impression: 1. Anxiety 2. Tachycardia Disposition: Patient is being discharged to home Ariane Valdovinos MD [facility] Emergency Department (Please note that portions of this note have been completed with a voice recognition software. Efforts were made to correct any errors, but occasionally words are mis-transcribed.) Ariane Valdovinos MD 02/10/[address] graham villanueva Pt presents to ED for c/o swelling and redness of the feet intermittently for a couple of months. Pt also states that he has had a high HR at home. Pt states he called his PCP and they suggested to come here. Pt states that he may just be having an anxiety attack. Pt's lower extremities are normal appearing at this time. Pt denies any swelling and redness of feet at this time Bed: 04 Expected date: Expected time: Means of arrival: Comments: Second Patient documented in this encounter ED Attestation Note - Farhan Ricketts DO - 12/06/2019 10:42 AM [facility] Attestation Note - Dinorah Donovan MD - 01/28/2020 10:25 PM EDT Miscellaneous Notes (unrecog nized section and content) ED Attestation: I was personally available for consult in the emergency department. I have reviewed the chart and agree with the documentation as recorded by the ESTHER (Advanced Practice Provider), including the assessment, treatment plan, and disposition documented in this encounter ED Attestation: I was personally available for consult in the emergency department. I have reviewed the chart and agree with the documentation as recorded by the ESTHER (Advanced Practice Provider), including the assessment, treatment plan, and disposition documented in this encounter Associated Order(s): EKG 12-lead EKG 12-lead Date/Time: 02/10/2020 1:47 PM Performed by: Ariane Valdovinos MD Authorized by: Ariane Valdovinos MD Interpreted by ED attending physician Rhythm: sinus rhythm BPM: 104 Conduction: incomplete RBBB and LAFB Clinical impression: non-specific ECG documented in this encounter Scheduled Active and Recently Administ ered Medications (unrecognized section and content) Scheduled Medication Order 10/06/2023 10/07/2023 10/08/2023 ketorolac (Toradol) injection 15 mg (COMPLETED) 15 mg, intramuscular, Once, On Luz [place] 10/08/23 at 0945, For 1 dose 1011 (Given - Provid er: Lisa Thomas RN) methylPREDNISolone sod succinate (PF) (SOLU-Medrol) injection 125 mg (COMPLETED) 125 mg, intramuscular, Once, On Luz Marina 10/08/23 at 0945, For 1 dose 1010 (Given - Provid er: Lisa Thomas RN) Scheduled Medication Order 10/14/2023 10/15/2023 10/16/2023 ciprofloxacin (Cipro) tablet 500 mg (COMPLETED) 500 mg, oral, Once, On Thu10/16/23 at 0630, For 1 dose, Separate at least 2 hours before or 6 hours after antacids or other products containing calcium, iron, or zinc., Dosing of this medication varies based on severity of illness. Does this patient have sepsis or concern for sepsis (probable or documented infection plus systemic manifestations of infection)? No, Suspected Indication (Select all that apply): Abdominal Infection, Type of Therapy: Empiric, Type of infection: Community-Acquired 0648 (Given - Provid er: Amparo Guzman RN) Care Teams (unrecognized sec tion and content) Mine Safety Director Relationship Specialty Start Date End Date Rafi Patel MD [address] [place] [address] PCP - General Family Medicine 06/11/22 Mine Safety Director Relationship Specialty Start Date End Date Rafi Patel MD [address] [place] [address] PCP - General Family Medicine 06/11/22 Mine Safety Director Relationship Specialty Start Date End Date Rafi Patel MD [address] [place] [address] PCP - General Family Medicine 06/11/22 Mine Safety Director Relationship Specialty Start Date End Date Rafi Patel MD [address] [place] [address] PCP - General Family Medicine 06/11/22 [facility] Community Health Worker Case Management 09/01/22 Mine Safety Director Relationship Specialty Start Date End Date Lauren [facility] Community Health Worker Case Management 09/01/22 Mine Safety Director Relationship Specialty Start Date End Date Ja Borges DO [address] [address] PCP - General 09/18/22 Mine Safety Director Relationship Specialty Start Date End Date Ja Borges DO [address] [address] PCP - General 09/18/22 Mine Safety Director Relationship Specialty Start Date End Date Ja Borges DO [address] [address] PCP - General 09/18/22 Ja Borges DO [address] [address] PCP - [facility] Medicaid PCP 08/02/23 Mine Safety Director Relationship Specialty Start Date End Date Ja Borges DO [address] [address] PCP - General 09/18/22 10/08/23 Ja Borges DO [address] [address] PCP - [facility] Medicaid PCP 08/02/23 Mine Safety Director Relationship Specialty Start Date End Date Ja Borges DO [facility] [address] [address] PCP - [facility] Medicaid PCP 08/02/23 Generic Provider, No Assigned [facility] [address] [place] [address] PCP - General Family Medicine 10/09/23 Mine Safety Director Relationship Specialty Start Date End Date Ja Borges DO [facility] [address] [address] PCP - [facility] Medicaid PCP 08/02/23 Kyle Emery MD [address] [place] [address] PCP - General Family Medicine 12/03/23 Mine Safety Director Relationship Specialty Start Date End Date Ja Borges DO [facility] [address] [address] PCP - [facility] Medicaid PCP 08/02/23 Kyle Emery MD [address] [place] [address] PCP - General Family Medicine 12/03/23 <item><item> Privacy Markings (unrecogniz ed section and content) Section Author: Sara Salcedo PROHIBITION ON REDISCLOSURE OF CONFIDENTIAL INFORMATION This notice accompanies a disclosure of information concerning a client made to you with the consent of such client. Section Author: Sara Salcedo PROHIBITION ON REDISCLOSURE OF CONFIDENTIAL INFORMATION This notice accompanies a disclosure of information concerning a client made to you with the consent of such client. FOR RECORDS PERTAINING TO PATIENTS WHO ARE OR HAVE BEEN ENROLLED IN A CHEMICAL DEPENDENCY/SUBSTANCEABUSE PROGRAM, SOME INFORMATION MAY BE OMITTED. This clinical summary was aggregated from multiple sources. Caution should be exercised in using it in the provision of clinical care. This summary normalizes information from multiple sources, and as a consequence, information in this document may materially change the coding, format and clinical context of patient data. In addition, data may be omitted in some cases. CLINICAL DECISIONS SHOULD BE BASED ON THE PRIMARY CLINICAL RECORDS. [employer] provides no warranty or guarantee of the accuracy or completeness of information in this document.
== END | disposition home or self-care (01) ==
PROVIDERS: PCP Family Medicine; Referring Provider Anesthesiology; Visit Provider Anesthesiology
DX: M54.17 Radiculopathy, lumbosacral region (principal); M47.817 Spondylosis without myelopathy or radiculopathy, lumbosacral region
CPT/HCPCS: 80307